=== PATIENT | female | born 1995 | race Caucasian/White ===

== ENCOUNTER 2017-11-04 15:24 | Emergency (ER) | payer OTHER ==
[~2017-11-04] VITALS: Ht 160 cm; Wt 120.8 kg
[~2017-11-04 15:24] MED LIST: ALBU1AER9 INH; CHOL100010 PO; LACT1CAP6 PO; MULTTAB58 PO; OMEP40CA PO
[2017-11-04] MEDS ORDERED: ALBUT/IPRATROP 3MG/0.5MG NEB 3 ML VIAL INH STA (16:56)
[2017-11-04] MEDS ORDERED: KETOROLAC TROMETHAMINE 30 MG/ML VIAL IV STA (16:56)
[2017-11-04] MEDS ORDERED: SODIUM CHLORIDE 0.9% 1000ML 1,000 ML IV STA (16:56)
[2017-11-04 17:18] VITALS: O2SAT 96; Ht 160 cm; Wt 120.8 kg
[2017-11-04 17:41] LABS: BASO % 0.2 %; BASO ABS # 0.03 K/uL (0-0.2); EOS % 0.6 %; EOS ABS # 0.08 K/uL (0-0.5); HEMATOCRIT 39.8 % (37-47); HEMOGLOBIN 12.9 g/dL (12.0-16.0); IG# 0.03 K/uL (0.00-0.02); LYMPH % 9.7 %; LYMPH ABS # 1.36 K/uL (1.2-3.4); MEAN CELL VOLUME 83.6 fL (80-100); MEAN CORPUSCULAR HEMOGLOBIN 27.1 pg (25-34); MEAN CORPUSCULAR HGB CONC 32.4 g/dl (32-36); MEAN PLATELET VOLUME 10.1 fL (7.4-10.4); MONO % 6.1 %; MONO ABS # 0.85 K/uL (0.11-0.59); NEUT % 83.2 %; NEUT ABS # 11.63 K/uL (1.4-6.5); PLATELET COUNT 250 K/uL (130-400); RED CELL DISTRIBUTION WIDTH CV 14.3 % (11.5-14.5); RED CELL DISTRIBUTION WIDTH SD 43.9 fL (36.4-46.3); WHITE BLOOD COUNT 13.98 K/uL (4.8-10.8)
[2017-11-04 18:01] LABS: ALBUMIN 3.9 gm/dl (3.4-5.0); CALCIUM 8.9 mg/dl (8.5-10.1); CREATININE 0.8 mg/dl (0.60-1.20); POTASSIUM 3.9 mmol/L (3.5-5.1); TOTAL PROTEIN 8.2 gm/dl (6.4-8.2)
[2017-11-04] MEDS ORDERED: OMEP-334 PO (18:19)
[2017-11-04] MEDS ORDERED: VNTHFA/IN INH (18:19)
--- NOTE | 2017-11-04 19:23 | DIAGNOSTIC IMAGING REPORT ---
CHEST 2 VIEWS ROUTINE CLINICAL HISTORY: EVALUATE RESPIRATORY DISTRESS.DYSPNEA COMPARISON STUDY: Chest radiograph January 20, 2015. FINDINGS: Lung volumes are normal. There is no consolidation or evidence for pulmonary edema. No pneumothorax or pleural effusion is noted. Cardiac size is normal. Mediastinal contours are normal. IMPRESSION: No acute cardiopulmonary findings. Electronically signed by: Cristobal Hoyos M.D. 11/04/2017 7:22 PM Dictated Date/Time: 11/04/2017 7:21 PM
--- NOTE | 2017-11-04 19:28 | EMERGENCY ROOM VISIT NOTE ---
ED Visit Note First contact with patient: 16:35 CHIEF COMPLAINT: Cough, congestion, wheezing, chest tightness HISTORY OF PRESENTING ILLNESS: This is a 21-year-old female who presents the emergency department with concern for cough, wheezing, and chest tightness for the past 3 days. She states that she has been ill with an upper respiratory infection, coughing and congested, and feels she has some drainage in the back of her throat. She denies any fevers or chills, though she is noted to be febrile in triage. She has a history of asthma, she feels like this illness is aggravating her asthma. She has had some headaches and body aches off and on, but denies any persistent severe headaches, neck stiffness or pain. She denies any chest pain. She denies any hemoptysis. She does report that she recently went on a cruise with stops in [facility], [place], and [place] she returned from this a month ago. She does note some sick contacts with similar URI symptoms at work. She states that she has been using her albuterol nebulizer at home with some relief, but states she is almost out of this. REVIEW OF SYSTEMS: A complete 10 point review of systems was reviewed with the patient with pertinent positives and negatives as per history of present illness. All else were negative. PAST MEDICAL HISTORY: Reviewed in chart, see problem list below. SOCIAL HISTORY: Lives at home. She denies tobacco use. ALLERGIES: No known allergies. PHYSICAL EXAM: CONSTITUTIONAL: Pleasant and cooperative. No acute distress, nontoxic- appearing. Mildly dehydrated, but otherwise well appearing and well nourished. HEENT: Normocephalic, atraumatic. Pupils equal, round and reactive to light, EOMI. TMs normal. Pharynx normal. Tacky mucous membranes. NECK: Supple, full active range of motion without discomfort. RESPIRATORY: Diminished to auscultation bilaterally with mild expiratory wheezing. No crackles, rhonchi or stridor. No tachypnea. Nonlabored breathing. No accessory muscle use. Equal expansion bilaterally. CARDIOVASCULAR: Regular rate and rhythm with no murmurs, rubs or gallops. Normal peripheral perfusion. No edema. GASTROINTESTINAL: Soft, nontender, nondistended. No palpable masses or HSM. Bowel sounds present in all quadrants. MUSCULOSKELETAL: Full range of motion of all joints without discomfort. No calf swelling or tenderness to palpation. Negative Homans sign. INTEGUMENTARY: No rash or other significant dermatologic conditions noted. NEUROLOGIC: Alert and oriented X 4 with normal affect. Normal strength and sensation in all 4 extremities. No focal neurologic deficits noted. Normal speech. Normal gait observed. ED COURSE AND MEDICAL DECISION MAKING: CC: Patient presenting with complaint of cough, congestion, wheezing, chest tightness DIFFERENTIAL DIAGNOSIS: Includes, but not limited to viral URI, bronchitis, pneumonia, asthma exacerbation, PE, among others. INTERPRETATION OF LABS: Mild leukocytosis with left shift, no anemia, normal platelets, no significant electrolyte abnormalities, normal renal function, normal liver enzymes. UA appears contaminated, no infection. Urine negative. IMAGING: CHEST 2 VIEWS ROUTINE CLINICAL HISTORY: EVALUATE RESPIRATORY DISTRESS.DYSPNEA COMPARISON STUDY: Chest radiograph January 20, 2015. FINDINGS: Lung volumes are normal. There is no consolidation or evidence for pulmonary edema. No pneumothorax or pleural effusion is noted. Cardiac size is normal. Mediastinal contours are normal. IMPRESSION: No acute cardiopulmonary findings. MEDICATION RECONCILIATION: I attest that I have personally reviewed the patient 's current medication list. INITIAL VITAL SIGNS REVIEW: I reviewed the patient's initial vital signs and interpret them as follows: T: Febrile; BP: Hypertensive; HR: Tachycardic; RR : Within normal limits; Pulse Ox: Within normal limits on room air. Blood pressure screening: The patient was found to have an elevated blood pressure, which was felt to be situational. SUMMARY: Patient was evaluated at bedside, history and physical exam performed. Patient is alert and oriented, in no acute distress, resting calmly in stretcher. Patient is noted to cough frequently, and has mild expiratory wheezes throughout on auscultation. She is in no acute respiratory distress, no tachypnea and nonlabored breathing. Orders were placed at bedside for labs, UA and urine , IV fluids for hydration as a precaution, IV Toradol for body aches and fever, chest x-ray to evaluate for cardiopulmonary disease. Patient discussed with Dr. Carolina, who agrees with my assessment and plan. Labs and imaging reviewed as above, mild leukocytosis, otherwise unremarkable. No evidence of pneumonia on chest x-ray. Doubt PE at this time, low risk by well's criteria. Patient reassessed multiple times throughout ED stay, she has remained stable, tachycardia is downtrending with IV fluids. She still has a low-grade fever on repeat vitals, Tylenol ordered. Patient states that she is feeling much better after the Toradol and IV fluids. She is tolerating p.o. fluids well. Her wheezing, cough, and chest tightness are all improved after the DuoNeb treatment, and lungs are clear on reassessment. Symptoms seem most consistent with a viral URI and mild asthma exacerbation. Patient was updated on all results and plan for discharge, she was encouraged to follow closely with her PCP. Patient was also given strict return precautions should her symptoms worsen, she verbalized understanding. Patient was discharged home in stable condition and ambulatory. Problem List Medical Problems: (1) Acute bronchitis Status: Resolved (2) Acute tonsillitis Status: Resolved (3) Asthma, Unspecified Status: Chronic (4) Chronic Sinusitis Nos Status: Resolved (5) Dentalgia Status: Resolved (6) Exacerbation of asthma Status: Resolved (7) Exudative tonsillitis Status: Resolved (8) Gastro-Esophageal Reflux Disease Without Esophagitis Status: Chronic (9) Infectious Mononucleosis Status: Resolved (10) Peritonsillar abscess Status: Resolved (11) Personal History, Pneumonia (Recurrent) Status: Resolved Current/Historical Medications Scheduled Omeprazole (Omeprazole Dr), 40 MG PO DAILY Scheduled PRN Albuterol Hfa (Ventolin Hfa), 2-4 PUFFS INH Q4 PRN for SOB/Wheezing Allergies Coded Allergies: No Known Allergies (Unverified , 11/04/17) Vital Signs Date Time Temp Pulse Resp B/P (MAP) Pulse Ox O2 Delivery O2 Flow Rate FiO2 11/04/17 20:59 111 16 140/87 98 11/04/17 20:33 38.1 111 16 140/87 98 Room Air 11/04/17 20:33 111 16 140/87 98 Room Air 11/04/17 18:29 117 20 136/79 94 Room Air 11/04/17 17:18 96 Room Air 11/04/17 17:18 96 Room Air 11/04/17 15:29 38.1 119 18 160/82 96 Room Air Laboratory Results 11/04/17 17:32 Red Blood Count 4.76, Mean Corpuscular Volume 83.6, Mean Corpuscular Hemoglobin 27.1, Mean Corpuscular Hemoglobin Concent 32.4, Mean Platelet Volume 10.1, Neutrophils (%) (Auto) 83.2, Lymphocytes (%) (Auto) 9.7, Monocytes (%) (Auto) 6.1, Eosinophils (%) (Auto) 0.6, Basophils (%) (Auto) 0.2, Neutrophils # (Auto) 11.63, Lymphocytes # (Auto) 1.36, Monocytes # (Auto) 0.85, Eosinophils # (Auto) 0.08, Basophils # (Auto) 0.03 11/04/17 17:32 Test 11/04/17 17:32 11/04/17 18:25 White Blood Count 13.98 K/uL (4.8-10.8) Red Blood Count 4.76 M/uL (4.2-5.4) Hemoglobin 12.9 g/dL (12.0-16.0) Hematocrit 39.8 % (37-47) Mean Corpuscular Volume 83.6 fL (80-100) Mean Corpuscular Hemoglobin 27.1 pg (25-34) Mean Corpuscular Hemoglobin Concent 32.4 g/dl (32-36) Platelet Count 250 K/uL (130-400) Mean Platelet Volume 10.1 fL (7.4-10.4) Neutrophils (%) (Auto) 83.2 % Lymphocytes (%) (Auto) 9.7 % Monocytes (%) (Auto) 6.1 % Eosinophils (%) (Auto) 0.6 % Basophils (%) (Auto) 0.2 % Neutrophils # (Auto) 11.63 K/uL (1.4-6.5) Lymphocytes # (Auto) 1.36 K/uL (1.2-3.4) Monocytes # (Auto) 0.85 K/uL (0.11-0.59) Eosinophils # (Auto) 0.08 K/uL (0-0.5) Basophils # (Auto) 0.03 K/uL (0-0.2) RDW Standard Deviation 43.9 fL (36.4-46.3) RDW Coefficient of Variation 14.3 % (11.5-14.5) Immature Granulocyte % (Auto) 0.2 % Immature Granulocyte # (Auto) 0.03 K/uL (0.00-0.02) Anion Gap 7.0 mmol/L (3-11) Est Creatinine Clear Calc Drug Dose 137.7 ml/min Estimated GFR () 120.4 Estimated GFR (Non- 103.9 BUN/Creatinine Ratio 12.8 (10-20) Calcium Level 8.9 mg/dl (8.5-10.1) Total Bilirubin 0.3 mg/dl (0.2-1) Aspartate Amino Transf (AST/SGOT) 17 U/L (15-37) Alanine Aminotransferase (ALT/SGPT) 31 U/L (12-78) Alkaline Phosphatase 81 U/L (45-117) Total Protein 8.2 gm/dl (6.4-8.2) Albumin 3.9 gm/dl (3.4-5.0) Globulin 4.3 gm/dl (2.5-4.0) Albumin/Globulin Ratio 0.9 (0.9-2) Urine Color YELLOW Urine Appearance CLEAR (CLEAR) Urine pH 6.5 (4.5-7.5) Urine Specific [place] 1.009 (1.000-1.030) Urine Protein NEG (NEG) Urine Glucose (UA) NEG (NEG) Urine Ketones NEG (NEG) Urine Occult Blood TRACE (NEG) Urine Nitrite NEG (NEG) Urine Bilirubin NEG (NEG) Urine Urobilinogen NEG (NEG) Urine Leukocyte Esterase TRACE (NEG) Urine WBC (Auto) 1-5 /hpf (0-5) Urine RBC (Auto) 0-4 /hpf (0-4) Urine Hyaline Casts (Auto) 0 /lpf (0-5) Urine Epithelial Cells (Auto) >30 /lpf (0-5) Urine Bacteria (Auto) NEG (NEG) Urine Test NEG (NEG) Medications Administered Medications (Trade) Dose Ordered Sig/Mary Route Start Time Stop Time Status Last Admin Dose Admin Albuterol/ Ipratropium (Duoneb) 3 ml NOW STAT INH 11/04/17 16:56 11/04/17 16:58 DC 11/04/17 17:22 3 ML Sodium Chloride 1,000 ml @ 999 mls/hr Q1H1M STAT IV 11/04/17 16:56 11/04/17 17:56 DC 11/04/17 17:22 999 MLS/HR Ketorolac Tromethamine (Toradol Inj) 15 mg NOW STAT IV 11/04/17 16:56 11/04/17 16:58 DC 11/04/17 17:22 15 MG Al Hydroxide/Mg Hydroxide (Maalox Susp) 30 ml NOW STAT PO 11/04/17 20:19 11/04/17 20:21 DC 11/04/17 20:30 30 ML Albuterol (Ventolin Hfa Inhaler) 2 puffs NOW ONCE INH 11/04/17 20:30 11/04/17 20:31 DC 11/04/17 20:30 2 PUFFS Acetaminophen (Tylenol Tab) 1,000 mg NOW STAT PO 11/04/17 20:44 11/04/17 20:45 DC 11/04/17 20:52 1,000 MG Departure Information Impression Primary Impression: Viral URI with cough Additional Impression: Asthma exacerbation Dispostion Home / Self-Care Condition GOOD Referrals Cayetano Rubin M.D. (PCP) Patient Instructions ED Bronchitis Asthmatic, ED Inhaler Use, [facility] Additional Instructions You have been evaluated in the emergency department for your cough and wheezing. There is no evidence of pneumonia on your chest x-ray. You most likely have a viral illness which should get better over the next 7-10 days. Use the albuterol inhaler TWO puffs every 4 hours with a spacer as needed for cough, wheezing, chest tightness. You should also use this before bed to help prevent coughing so that you can sleep better at night. For fevers/pain, you can use the following [id number] medicines (if >12 yo ): - Regular strength (325mg/tab) Tylenol (acetaminophen) 2 tabs every 6 hours as needed. Do not exceed 10 tablets in a 24 hour period. Avoid taking more than 3000 mg of Tylenol per day. This includes any other sources of acetaminophen you may take on a regular basis. - Regular strength (200 mg/tab) Advil (ibuprofen) 3 tabs every 6 hours as needed. Do not exceed a dose of 2400 mg per day. - For best results, alternate dosing of Tylenol and Advil every 3-4 hours. Drink plenty of fluids to stay well hydrated. Please follow-up with your PCP or at an urgent care in the next few days to be rechecked if your symptoms are not getting any better. Please return to the emergency department if your symptoms worsen over the next 2-3 days, or if you develop symptoms of inability to swallow solids, liquids, or drool; excessive wheezing or inability to catch your breath; severe chest pain, coughing up blood, severe dizziness or passing out; fever or pain that becomes unmanageable with osga-roj-eguqtel medications; or any other concerns. Work Instructions Return To Work: 3 days Problem Qualifiers Additional Impression: Asthma exacerbation Asthma severity: mild Asthma persistence: intermittent Qualified Codes: J45.21 - Mild intermittent asthma with (acute) exacerbation
[2017-11-04] MEDS ORDERED: CALCIUM CARBONATE 500 MG CHEWABLE PO STA (19:51)
[2017-11-04] MEDS ORDERED: ALUMINUM/MAGNESIUM SUSP 30 ML UDC PO STA (20:19)
[2017-11-04] MEDS ORDERED: ALBUTEROL HFA 8 GM INHALER INH ONE (20:30)
[2017-11-04 20:33] VITALS: TEMP 38.1
[2017-11-04] MEDS ORDERED: ACETAMINOPHEN 500 MG TAB PO STA (20:44)
[2017-11-04 20:59] VITALS: BP 140/87; PULSE 111; O2SAT 98
== END 2017-11-04 21:00 | disposition home or self-care (01) ==
LOC: C.EDB 15:25
DX: J06.9 Acute upper respiratory infection, unspecified (principal); R05 Cough; J45.21 Mild intermittent asthma with (acute) exacerbation; K21.9 Gastro-esophageal reflux disease without esophagitis

== ENCOUNTER 2022-03-09 14:25 | Inpatient (IN) ==
[2022-03-09] MEDS ORDERED: ONDANSETRON INJ 2 MG/ML 2 ML VIAL IV STA (15:10)
[2022-03-09] MEDS ORDERED: FAMOTIDINE 20MG IV PUSH 20 MG/5 ML SYR IV STA (15:10)
[2022-03-09] MEDS ORDERED: SODIUM CHLORIDE 0.9% 1000ML 2,000 ML IV ONE (15:10)
--- NOTE | 2022-03-09 15:40 | XRay Report ---
XR chest 1V portable HISTORY: 26 years-old Female weakness acute weakness COMPARISON: 12/15/2021 TECHNIQUE: AP view the chest FINDINGS: Cardiomediastinal and hilar silhouettes are within normal limits. No pneumothorax, pleural effusion, airspace consolidation or overt pulmonary edema. Mild coarsening of interstitium is likely secondary to patient body habitus. Bones appear grossly intact. IMPRESSION: No acute process. ACT 112: Negative or not required by law. The above report was generated using voice recognition software. It may contain grammatical, syntax o r spelling errors. Electronically signed by: Derek Peters M.D. 03/09/2022 3:39 PM
[2022-03-09] MEDS ORDERED: ACETAMINOPHEN 1,000 MG/100 ML VIAL IV STA (15:58)
[2022-03-09] MEDS ORDERED: ALBUT/IPRATROP 3MG/0.5MG NEB 3 ML VIAL NEB STA (15:58)
[2022-03-09] MEDS ORDERED: SODIUM CHLORIDE 0.65% NA SOLN 45 ML (OCEAN) ONE (15:58)
[2022-03-09 16:09] LABS: Hematocrit (blood only) 32.4 % (34.1-44.9); Hemoglobin 10.9 g/dl (12.0-16.0); Mean Corpuscular Hgb Conc 33.6 g/dL (32.0-36.0); Mean Corpuscular Volume 86.2 fL (80.0-100.0); Mean Platelet Volume 10.7 fL (9.4-12.3); Platelet Count 163 K/uL (130-400); RDW Coefficient of Variation 12.8 % (11.5-14.5); RDW Standard Deviation 39.9 fL (36.4-46.3); Red Blood Count 3.76 M/uL (3.93-5.22); White Blood Count 10.72 K/ul (4.8-10.8)
[2022-03-09 16:27] LABS: Basophils # (auto) 0.02 K/uL (0-0.2); Basophils % (auto) 0.2 %; Eosinophils # (auto) 0.01 K/uL (0-0.50); Eosinophils % (auto) 0.1 %; Immature Granulocytes # (auto) 0.12 K/uL (0.00-0.02); Immature Granulocytes % (auto) 1.1 %; Lymphocytes # (auto) 0.23 K/uL (1.2-3.4); Lymphocytes % (auto) 2.1 %; Monocytes # (auto) 0.59 K/uL (0.24-0.82); Monocytes % (auto) 5.5 %; Neutrophils # (auto) 9.75 K/uL (1.4-6.5)
[2022-03-09 16:30] LABS: Albumin Globulin Ratio 1.1 (0.9-2); Albumin Level 3.1 gm/dl (3.4-5.0); BUN Creatinine Ratio 10.7 (10-20); Bilirubin,Total 0.5 mg/dl (0.2-1.0); Creatinine Clr Calc Pharmacy 179.7 ml/min; Est GFR (African American) 147.1 ml/min; Est GFR (Non-African American) 126.9 ml/min; Globulin 2.7 gm/dl (2.5-4.0); Magnesium 1.4 mg/dl (1.7-2.4); Potassium 3.6 mmol/L (3.5-5.1); Total Protein 5.8 gm/dl (6.0-8.3)
--- NOTE | 2022-03-09 16:50 | Electrocardiogram Report ---
Test Reason : Blood Pressure : / mmHG Vent. Rate : 131 BPM Atrial Rate : 131 BPM P-R Int : 114 ms QRS Dur : 070 ms QT Int : 286 ms P-R-T Axes : 075 058 259 degrees QTc Int : 422 ms Poor data quality, interpretation may be adversely affected Sinus tachycardia Chronic T-wave inversion in multiple leads Abnormal ECG When compared with ECG of 19-MAY-2020 10:35, Vent. rate has increased BY 55 BPM T-wave inversion in multiple leads more pronounced (may be rate related) Confirmed by Wes Snyder ([id number] on 03/09/2022 4:50:22 PM Referred By: REFERRED SELF Confirmed By:Wes Snyder
[2022-03-09 16:54] LABS: Adenovirus PCR Not Detected (NotDetected); Bordetella parapertussis PCR Not Detected (NotDetected); Bordetella pertussis PCR Not Detected (NotDetected); Chlamydia pneumoniae PCR Not Detected (NotDetected); Coronavirus 229E PCR Not Detected (NotDetected); Coronavirus CoV-2 (COVID19)PCR Not Detected (NotDetected); Coronavirus HKU1 PCR Not Detected (NotDetected); Coronavirus NL63 PCR Not Detected (NotDetected); Coronavirus OC43PCR Not Detected (NotDetected); Human Metapneumovirus PCR Not Detected (NotDetected); Influenza B PCR Not Detected (NotDetected); Mycoplasma pneumoniae PCR Not Detected (NotDetected); Parainfluenza Virus 1 PCR Not Detected (NotDetected); Parainfluenza Virus 2 PCR Not Detected (NotDetected); Parainfluenza Virus 3 PCR Not Detected (NotDetected); Parainfluenza Virus 4 PCR Not Detected (NotDetected); Respiratory Syncytial VirusPCR Not Detected (NotDetected); Rhinovirus/Enterovirus PCR Not Detected (NotDetected)
[2022-03-09 16:55] LABS: Influenza A (H1 2009) PCR DETECTED (NotDetected)
[2022-03-09] MEDS: MAGNESIUM SULFATE / D5W 1 GM/100 ML BAG IV SCH ×2 (17:52→18:50)
[2022-03-09 18:36] LABS: Appearance Urine Cloudy (Clear); Bacteria Urine Automated 2+ (Negative); Bilirubin Urine Negative (Negative); Blood Urine Negative (Negative); Color Urine Yellow; Epithelial Cell Urine Auto >30 /lpf (0-5); Glucose Urine UA Negative (Negative); Ketones Urine 3+ (Negative); Leukocyte Esterase Urine 3+ (Negative); Nitrite Urine Negative (Negative); Protein Urine Negative (Negative); RBC Urine Automated 0-4 /hpf (0-4); Specific Gravity Urine 1.007 (1.000-1.030); Urobilinogen Urine Negative (Negative); WBC Urine Automated >30 /hpf (0-5)
[2022-03-09] MEDS ORDERED: OSELTAMIVIR PHOSPHATE 75 MG CAP PO STA (19:12)
--- NOTE | 2022-03-09 19:20 | Emergency Department Note ---
Impression & Plan Influenza A virus subtype H1 present, Asthma, Dehydration, Hypomagnesemia ED Provider Note NAME: SUELLEN PARK AGE: 26 SEX: F ARRIVES VIA: Walk-In INFORMANT: Patient ED PROVIDER(S): Anthony Devine MD CHIEF COMPLAINT: Cough, congestion, nausea, vomiting, body aches, 38 weeks . PLAN: Disposition: Admit MEDICAL DECISION MAKING: The patient is a pleasant 26-year-old woman, G1, P0 at 38 weeks with pmhx of asthma, anxiety/depression, obesity, GERD who presents to the emergency department for evaluation of cough, congestion and generalized body aches with associated nausea and vomiting over the past 24 hours. She is not vaccinated for COVID nor the flu. She denies chest pain, abdominal pain or cramping. She denies any vaginal bleeding or discharge. She continues to have movements. She reports that her thus far has been uncomplicated. She reports a history of asthma and acid reflux. On arrival the patient is uncomfortable but no acute distress, afebrile with heart in the 130s and vital signs otherwise stable. O2 saturations 98% on room air. She appears clinically dry. Lungs with a very subtle wheeze and are otherwise clear. FHT upper 130s. EKG without overt acute ischemia. CXR negative for acute cardiopulmonary process. WBC and platelets within normal limits. H/H similar to prior. Chemistry without metabolic acidosis. Magnesium 1.4 with repletion initiated. LFTs unremarkable. TSH within normal limits. UA with 3+ ketones consistent with patient's clinically dry appearance. UA otherwise appears contaminated. Respiratory viral panel was performed and was positive for influenza A. H1 2008. Upon reevaluation the patient denied feeling much improvement though she did appear better and heart rate had improved. However, given her third trimester at 38 weeks with dehydration in setting of Influenza A will refer for admission. Case was discussed with Dr. Cox, [place] supervisor boat out[employer]. Agrees with plan for admission however recommends admission to medicine service as they attempt to avoid placement of influenza patients in the OB floor. However, they will be available for consultation for at least daily monitoring. Agrees with Tamiflu and steroids, given the patient's history of asthma and bronchospasm on exam. Case was discussed with Dr. Yang, [facility] hospitalist, who will evaluate the patient for admission. Triage Nursing notes reviewed and agree them. Prior medical records reviewed Vital Signs: reviewed Differential diagnosis: Viral syndrome, otitis, pharyngitis, pneumonia, influenza, meningitis, urinary tract infection, sepsis, bacteremia, as well as other pathologies. ER treatment provided: See below. Diagnostics interpreted by me: ECG: Sinus tachycardia, 131 bpm, no overt ST elevation or depression, QTC 422, QRS 70 Cardiac Monitoring: An order for continuous cardiac monitoring was placed and demonstrated sinus tachycardia, 131 bpm, no ectopy. Laboratory studies: See below Imaging studies: See below Consultation(s): Dr. Cox, [place] supervisor boat outfitting Dr. Yang, [facility] Hospitalist HPI: The patient is a pleasant 26-year-old woman, G1, P0 at 38 weeks w ith pmhx of asthma, anxiety/depression, obesity, GERD who presents to the emergency department for evaluation of cough, congestion and generalized body aches with associated nausea and vomiting over the past 24 hours. She is not vaccinated for COVID nor the flu. She denies chest pain, abdominal pain or cramping. She denies any vaginal bleeding or discharge. She continues to have movements. She reports that her thus far has been uncomplicated. She reports a history of asthma and acid reflux. ROS: See above HPI for pertinent positives & negatives. A total of 10 systems reviewed and were otherwise negative. VITALS:See Below PHYSICAL EXAMINATION: GENERAL: Awake, alert, fatigued/uncomfortable-appearing, in no distress HENT: Normocephalic, atraumatic. Oropharynx with dry mucous membranes and o therwise unremarkable. EYES: Normal conjunctiva. Sclera non-icteric. NECK: Supple. No nuchal rigidity. FROM. No JVD. RESPIRATORY: Scant intermittent wheeze, otherwise clear to auscultation. Normal respiratory effort. CARDIAC: Regular rate, normal rhythm. Extremities warm and well perfused. Pulses equal. ABDOMEN: Soft. Gravid. No tenderness to palpation. No rebound or guarding. No masses. RECTAL: Deferred. MUSCULOSKELETAL: Chest examination reveals no tenderness. The back is symmetrical on inspection without obvious abnormality. There is no CVA tenderness to palpation. No joint edema. LOWER EXTREMITIES: Calves are equal size bilaterally and non-tender. No edema. No discoloration. NEURO: Normal sensorium. No sensory or motor deficits noted. SKIN: No rash or jaundice noted. Anthony Devine MD Past Med/Surg History Medical History Anxiety Asthma Depression GERD (gastroesophageal reflux disease) History of chicken pox Hx of chlamydia infection Infectious mononucleosis Peritonsillar abscess HX Temporomandibular joint disorder CLICKS LEFT SIDE-NO LOCKING Surgical History History of cholecystectomy History of tonsillectomy History of tooth extraction WISDOM TEETH Family History Aunt Ovarian cancer Melanoma Uncle Acute leukemia Mother Arthritis Denies family history of Breast cancer Lung cancer Colorectal cancer Social History Smoking Status: Never smoker Second Hand Exposure: No (BOYFRIEND SMOKES); Hx Alcohol Use: No Hx Substance Use: No Preferred Language: Vietnamese Communication Ability: Effective Visual Impairment: Partially Limited Music Executive Required: No Beliefs That Will Affect Care: None marital status: marital status details: NENO Herrera (27) [phone] Current Living Situation: Significant Other Current Living Situation Comment: FOB & 1 dog current occupational status: employed current occupation: [employer] How many Children do You have: 0 Feels Safe at Home: Yes Assistive Devices: None Allergies Allergies Allergy/AdvReac Type Severity Reaction Status Date / Time house dust Allergy Mild Sneezing Verified 03/09/22 21:07 pollen extracts Allergy Mild Sneezing Verified 03/09/22 21:07 Home Meds Home Medications Medication Instructions Recorded Confirmed prenat.vits,heather,oys-[id number] 1 tab PO DAILY 07/14/21 03/09/22 Sudafed Tab 1 tab PO BID PRN Congestion 03/09/22 03/09/22 famotidine 10 mg tablet (Pepcid AC) 10 mg PO DAILY PRN Acid Reflux 03/09/22 03/09/22 Previous Rx's Medication Instructions Recorded albuterol sulfate 90 mcg/actuation 2 inha inhalation QID PRN 12/15/21 aerosol inhaler shortness of breath or wheezing #6.7 grams Results & Data (ED) Vital Signs Vital Signs - 24 hr 03/09/22 14:41 03/09/22 15:10 03/09/22 17:00 Temperature 36.6 C Temperature Source Temporal Artery Scan Pulse Rate 133 H 120 H Pulse Rate [Apical] 114 H Respiratory Rate 18 20 18 Respiratory Effort / Characteristics Non-Labored Spontaneous Respiratory Depth Normal Respiratory Pattern Regular Blood Pressure 132/84 Blood Pressure [Right Arm] 114/79 Blood Pressure Mean 100 Blood Pressure Mean [Right Arm] 90 Blood Pressure Position Sitting Pulse Oximetry 98 98 100 Oxygen Delivery Method Room Air Room Air Sepsis Recent Fever Within 48 Hours No Sepsis New/Unexplained Change in Mental Status N/A Sepsis Action Taken by Nursing No Action Required 03/09/22 19:00 Temperature Temperature Source Pulse Rate Pulse Rate [Apical] 114 H Respiratory Rate 22 Respiratory Effort / Characteristics Non-Labored Respiratory Depth Normal Respiratory Pattern Blood Pressure Blood Pressure [Right Arm] 112/78 Blood Pressure Mean Blood Pressure Mean [Right Arm] 89 Blood Pressure Position Pulse Oximetry 99 Oxygen Delivery Method Sepsis Recent Fever Within 48 Hours Sepsis New/Unexplained Change in Mental Status Sepsis Action Taken by Nursing Laboratory Data Attestation: I reviewed the patient's lab results. Result diagrams: 03/09/22 15:43 03/09/22 15:43 Lab Results 03/09/22 03/09/22 03/09/22 Range/Units 15:43 15:43 15:43 WBC 10.72 (4.8-10.8) K/ul RBC 3.76 L (3.93-5.22) M/uL Hgb 10.9 L (12.0-16.0) g/dl Hct 32.4 L (34.1-44.9) % MCV 86.2 (80.0-100.0) fL MCH 29.0 (25.0-34.0) pg MCHC 33.6 (32.0-36.0) g/dL RDW Std Deviation 39.9 (36.4-46.3) fL RDW Coeff of Shun 12.8 (11.5-14.5) % Plt Count 163 (130-400) K/uL MPV 10.7 (9.4-12.3) fL Immature Gran % (Auto) 1.1 % Neut % (Auto) 91.0 % Lymph % (Auto) 2.1 % [place] % (Auto) 5.5 % Eos % (Auto) 0.1 % Baso % (Auto) 0.2 % Neut # (Auto) 9.75 H (1.4-6.5) K/uL Lymph # (Auto) 0.23 L (1.2-3.4) K/uL [place] # (Auto) 0.59 (0.24-0.82) K/uL Eos # (Auto) 0.01 (0-0.50) K/uL Baso # (Auto) 0.02 (0-0.2) K/uL Immature Gran # (Auto) 0.12 H (0.00-0.02) K/uL Sodium 132 L (136-145) mmol/L Potassium 3.6 (3.5-5.1) mmol/L Chloride 101 (98-107) mmol/L Carbon Dioxide 21 (21-32) mmol/L Anion Gap 10 (3-11) BUN 6 (6-23) mg/dl Creatinine 0.56 L (0.6-1.2) mg/dl Est Cr Clr Drug Dosing 179.7 ml/min Est GFR ( Amer) 147.1 ml/min Est GFR (Non-Af Amer) 126.9 ml/min BUN/Creatinine Ratio 10.7 (10-20) Glucose 82 (70-99(Fasting)) mg/dl Calcium 8.0 L (8.5-10.1) mg/dl Magnesium 1.4 L (1.7-2.4) mg/dl Total Bilirubin 0.5 (0.2-1.0) mg/dl AST 21 (13-39) U/L ALT 14 (7-52) U/L Alkaline Phosphatase 113 H (34-104) U/L Total Protein 5.8 L (6.0-8.3) gm/dl Albumin 3.1 L (3.4-5.0) gm/dl Globulin 2.7 (2.5-4.0) gm/dl Albumin/Globulin Ratio 1.1 (0.9-2) TSH 1.388 (0.300-4.500) uIu/ml Urine Color Urine Appearance (Clear) Urine pH (4.5-7.5) Ur Specific [place] (1.000-1.030) Urine Protein (Negative) Urine Glucose (UA) (Negative) Urine Ketones (Negative) Urine Blood (Negative) Urine Nitrite (Negative) Urine Bilirubin (Negative) Urine Urobilinogen (Negative) Ur Leukocyte Esterase (Negative) Urine WBC (Auto) (0-5) /hpf Urine RBC (Auto) (0-4) /hpf U Hyaline Cast (Auto) (0-5) /lpf U Epithel Cells (Auto) (0-5) /lpf Urine Bacteria (Auto) (Negative) Ur Renal Epithelial Cell Urine Crystals Calcium Oxalate Crystal Uric Acid Crystals Triple Phos Crystals Other Crystals Amorphous Sediment Granular Casts Waxy Casts RBC Casts WBC Casts Other Casts Urine Mucus Urine Other Urine Trichomonas Urine Yeast Urine Sperm Ur Oval Fat Bodies Nasal Influ A H1 2009 PCR (NotDetected) Adenovirus (PCR) (NotDetected) B. pertussis DNA (PCR) (NotDetected) B.parapertussis DNA PCR (NotDetected) C. pneumoniae DNA (PCR) (NotDetected) Coronavirus OC43 (PCR) (NotDetected) Coronavirus HKU1 (PCR) (NotDetected) Coronavirus 229E (PCR) (NotDetected) SARS-CoV-2 (PCR) (NotDetected) Coronavirus NL63 (PCR) (NotDetected) Human Metapneumovir PCR (NotDetected) Influenza Type B (PCR) (NotDetected) M. pneumoniae (PCR) (NotDetected) Parainfluenza 1 (PCR) (NotDetected) Parainfluenza 2 (PCR) (NotDetected) Parainfluenza 3 (PCR) (NotDetected) Parainfluenza 4 (PCR) (NotDetected) RSV (PCR) (NotDetected) Entero/Rhino (PCR) (NotDetected) 03/09/22 03/09/22 03/09/22 Range/Units 18:15 Unknown Unknown WBC (4.8-10.8) K/ul RBC (3.93-5.22) M/uL Hgb (12.0-16.0) g/dl Hct (34.1-44.9) % MCV (80.0-100.0) fL MCH (25.0-34.0) pg MCHC (32.0-36.0) g/dL RDW Std Deviation (36.4-46.3) fL RDW Coeff of Shun (11.5-14.5) % Plt Count (130-400) K/uL MPV (9.4-12.3) fL Immature Gran % (Auto) % Neut % (Auto) % Lymph % (Auto) % [place] % (Auto) % Eos % (Auto) % Baso % (Auto) % Neut # (Auto) (1.4-6.5) K/uL Lymph # (Auto) (1.2-3.4) K/uL [place] # (Auto) (0.24-0.82) K/uL Eos # (Auto) (0-0.50) K/uL Baso # (Auto) (0-0.2) K/uL Immature Gran # (Auto) (0.00-0.02) K/uL Sodium (136-145) mmol/L Potassium (3.5-5.1) mmol/L Chloride (98-107) mmol/L Carbon Dioxide (21-32) mmol/L Anion Gap (3-11) BUN (6-23) mg/dl Creatinine (0.6-1.2) mg/dl Est Cr Clr Drug Dosing ml/min Est GFR ( Amer) ml/min Est GFR (Non-Af Amer) ml/min BUN/Creatinine Ratio (10-20) Glucose (70-99(Fasting)) mg/dl Calcium (8.5-10.1) mg/dl Magnesium (1.7-2.4) mg/dl Total Bilirubin (0.2-1.0) mg/dl AST (13-39) U/L ALT (7-52) U/L Alkaline Phosphatase (34-104) U/L Total Protein (6.0-8.3) gm/dl Albumin (3.4-5.0) gm/dl Globulin (2.5-4.0) gm/dl Albumin/Globulin Ratio (0.9-2) TSH (0.300-4.500) uIu/ml Urine Color Yellow Cancelled Urine Appearance Cloudy A Cancelled (Clear) Urine pH 6.0 Cancelled (4.5-7.5) Ur Specific [place] 1.007 Cancelled (1.000-1.030) Urine Protein Negative Cancelled (Negative) Urine Glucose (UA) Negative Cancelled (Negative) Urine Ketones 3+ H Cancelled (Negative) Urine Blood Negative Cancelled (Negative) Urine Nitrite Negative Cancelled (Negative) Urine Bilirubin Negative Cancelled (Negative) Urine Urobilinogen Negative Cancelled (Negative) Ur Leukocyte Esterase 3+ H Cancelled (Negative) Urine WBC (Auto) >30 H Cancelled (0-5) /hpf Urine RBC (Auto) 0-4 Cancelled (0-4) /hpf U Hyaline Cast (Auto) 0 Cancelled (0-5) /lpf U Epithel Cells (Auto) >30 H Cancelled (0-5) /lpf Urine Bacteria (Auto) 2+ H Cancelled (Negative) Ur Renal Epithelial Cell Cancelled Urine Crystals Cancelled Calcium Oxalate Crystal Cancelled Uric Acid Crystals Cancelled Triple Phos Crystals Cancelled Other Crystals Cancelled Amorphous Sediment Cancelled Granular Casts Cancelled Waxy Casts Cancelled RBC Casts Cancelled WBC Casts Cancelled Other Casts Cancelled Urine Mucus Cancelled Urine Other Cancelled Urine Trichomonas Cancelled Urine Yeast Cancelled Urine Sperm Cancelled Ur Oval Fat Bodies Cancelled Nasal Influ A H1 2008 PCR DETECTED A* (NotDetected) Adenovirus (PCR) Not Detected (NotDetected) B. pertussis DNA (PCR) Not Detected (NotDetected) B.parapertussis DNA PCR Not Detected (NotDetected) C. pneumoniae DNA (PCR) Not Detected (NotDetected) Coronavirus OC43 (PCR) Not Detected (NotDetected) Coronavirus HKU1 (PCR) Not Detected (NotDetected) Coronavirus 229E (PCR) Not Detected (NotDetected) SARS-CoV-2 (PCR) Not Detected (NotDetected) Coronavirus NL63 (PCR) Not Detected (NotDetected) Human Metapneumovir PCR Not Detected (NotDetected) Influenza Type B (PCR) Not Detected (NotDetected) M. pneumoniae (PCR) Not Detected (NotDetected) Parainfluenza 1 (PCR) Not Detected (NotDetected) Parainfluenza 2 (PCR) Not Detected (NotDetected) Parainfluenza 3 (PCR) Not Detected (NotDetected) Parainfluenza 4 (PCR) Not Detected (NotDetected) RSV (PCR) Not Detected (NotDetected) Entero/Rhino (PCR) Not Detected (NotDetected) Administered Medications Sodium Chloride (Nss 1000ml) 1,000 mls @ 125 mls/hr IV .Q8H ALEX Stop: 04/08/22 19:44 Last Admin: 03/09/22 19:39 Dose: 125 mls/hr Documented By: TNB Discontinued Medications Albuterol (Albut/Ipratrop 3mg/0.5mg Neb 3 Ml Vial) 3 ml NEB NOW STA; Protocol Stop: 03/09/22 15:59 Last Admin: 03/09/22 16:06 Dose: 3 ml Documented By: TNB Sodium Chloride (Nss 1000ml) 2,000 mls @ 999 mls/hr IV .Q2H1M ONE Stop: 03/09/22 17:10 Last Infusion: 03/09/22 16:50 Dose: 0 mls/hr Documented By: Admin: 03/09/22 15:42 Dose: 999 mls/hr Documented By: MMZ Famotidine (Pepcid 20mg Iv Push) 20 mg in 5 mls @ 2.5 mls/min IV NOW STA Stop: 03/09/22 15:11 Last Admin: 03/09/22 16:06 Dose: 2.5 mls/min Documented By: TNB Acetaminophen (Ofirmev) 1,000 mg in 100 mls @ 400 mls/hr IV NOW STA Stop: 03/09/22 16:12 Last Infusion: 03/09/22 16:34 Dose: 0 mls/hr Documented By: Admin: 03/09/22 16:06 Dose: 400 mls/hr Documented By: TNMichaelle Magnesium Sulfate/Dextrose (Magnesium Sulfate / D5w) 1 gm in 100 mls @ 100 mls/hr IV Q1H ALEX Stop: 03/09/22 19:26 Last Infusion: 03/09/22 19:53 Dose: 0 mls/hr Documented By: Admin: 03/09/22 18:50 Dose: 100 mls/hr Documented By: Infusion: 03/09/22 18:50 Dose: 100 mls/hr Documented By: Admin: 03/09/22 17:52 Dose: 100 mls/hr Documented By: TNB Methylprednisolone (Methylprednisolone 125 Mg/2 Ml Vial) 60 mg IV NOW STA Stop: 03/09/22 19:30 Last Admin: 03/09/22 19:38 Dose: 60 mg Documented By: HALEY Ondansetron HCl (Ondansetron Inj 2 Mg/Ml 2 Ml Vial) 4 mg IV NOW STA Stop: 03/09/22 15:11 Last Admin: 03/09/22 16:39 Dose: Not Given Documented By: HALEY Oseltamivir Phosphate (Oseltamivir Phosphate 75 Mg Cap) 75 mg PO NOW STA; Protocol Stop: 03/09/22 19:13 Last Admin: 03/09/22 19:38 Dose: 75 mg Documented By: HALEY Sodium Chloride (Sodium Chloride 0.65% Na Soln 45 Ml ([place])) 2 sprays NA NOW ONE Stop: 03/09/22 15:59 Last Admin: 03/09/22 16:06 Dose: 225 sprays Documented By: HALEY Imaging Data Radiologist's Impression: Chest X-Ray 03/09/22 15:10 XR chest 1V portable HISTORY: 26 years-old Female weakness acute weakness COMPARISON: 12/15/2021 TECHNIQUE: AP view the chest FINDINGS: Cardiomediastinal and hilar silhouettes are within normal limits. No pneumothorax, pleural effusion, airspace consolidation or overt pulmonary edema. Mild coarsening of interstitium is likely secondary to patient body habitus. Bones appear grossly intact. IMPRESSION: No acute process. ACT 112: Negative or not required by law. The above report was generated using voice recognition software. It may contain grammatical, syntax or spelling errors. Electronically signed by: Derek Peters M.D. 03/09/2022 3:39 PM Discharge Plan Visit Data Chief Complaint: Dehydration Stated Complaint: DEHYDRATION, COUGHING , 38 WKS PREG ED Provider: Anthony Devine Discharge Problem: Influenza A virus subtype H1 present, Asthma, Dehydration, Hypomagnesemia Patient Disposition: Admitted As Inpatient Forms Stand Alone Forms: My [facility] Prescriptions Prescriptions: No Action Vitamin Tablet 1 tab PO DAILY albuterol sulfate 90 mcg/actuation HFA aerosol inhaler 2 inha INH QID PRN (Reason: shortness of breath or wheezing) Qty: 6.7 0RF famotidine [Pepcid AC] 10 mg Tablet 10 mg PO DAILY PRN (Reason: Acid Reflux) Sudafed Tab 1 tab PO BID PRN (Reason: Congestion) Referrals Referrals: Cayetano Rubin MD [Primary Care Provider] -
[2022-03-09] MEDS ORDERED: methylPREDNISolone 125 MG/2 ML VIAL IV STA (19:29)
[2022-03-09 19:32] LABS: Cast Urine Automated 0 /lpf (0-5)
[2022-03-09] MEDS ORDERED: SODIUM CHLORIDE 0.9% 1000ML 1,000 ML IV SCH (19:45)
[2022-03-09] MEDS ORDERED: ALBUTEROL HFA 8 GM INHALER INH PRN (22:48)
[2022-03-09] MEDS ORDERED: ONDANSETRON INJ 2 MG/ML 2 ML VIAL IV PRN (22:48)
--- NOTE | 2022-03-09 23:00 | History and Physical Report ---
DATE OF ADMISSION: 03/09/2022 CHIEF COMPLAINT: Flu-like symptoms. HISTORY OF PRESENT ILLNESS: This is a 26-year-old female with past medical history significant for asthma, obesity. The patient is 38-week , 1, para 0. Comes because of feeling flu-like symptoms since last Tuesday with cough, nasal congestion, generalized body aches associated with some nausea, vomiting and also the patient was complaining of lower groin pain and hip pain. Denies any fevers, no chest pain. Has some mild headache. No blurred visions, no earache, no runny nose, no sore throat. Appetite is not that great today. She is not able to keep her crackers down today. No diarrhea or constipation. Her urine is dark. Does not have burning micturition. Resting currently, saturating okay on room air. ALLERGIES: HOUSE DUST, POLLEN EXTRACTS. PAST MEDICAL HISTORY: As mentioned above. PAST SURGICAL HISTORY: Dental surgery, laparoscopy, cholecystectomy, IUD placement. MEDICATIONS: The patient is on vitamins, albuterol 2 puffs inhalation q.i.d. p.r.n., Pepcid 20 mg p.o. daily p.r.n. FAMILY HISTORY: Significant for brother has asthma, aunt has ovarian cancer, uncle has leukemia, mother has rheumatoid arthritis. SOCIAL HISTORY: No smoking, no alcohol, no drug use. REVIEW OF SYSTEMS: As per HPI. Rest of review of systems is negative. PHYSICAL EXAMINATION: GENERAL: The patient is morbidly obese, currently not in acute distress. VITAL SIGNS: Temperature 36.6, pulse 114, respiratory rate 22, blood pressure 112/78, oxygen 99% on room air. HEENT: Pupils equal, round and reactive to light. Oral mucosa moist. NECK: No JVD, no neck masses. CARDIOVASCULAR: S1 and S2 heard. Tachycardia. No murmurs. RESPIRATORY SYSTEM: Normal AP diameter. No accessory muscle use. No wheezing, no crackles. ABDOMEN: Soft, bowel sounds sluggish, nontender. CENTRAL NERVOUS SYSTEM: Cranial nerves II-XII grossly intact, nonfocal. EXTREMITIES: mild pedal edema, no erythema seen. LABORATORY DATA: WBC 10.7, hemoglobin 10.9, hematocrit 32.4, platelets 163. Sodium 132, potassium 3.6, chloride 101, bicarbonate 21, BUN 6, creatinine 0.5, serum glucose 82, calcium 8, magnesium 1.4, total bilirubin 0.5, AST 21, ALT 14, alkaline phosphatase 113. TSH 1.3. Urinalysis +3 leukocyte esterase, +2 bacteria. Influenza A detected. Other respiratory Bio[employer] negative. IMAGING DATA: Chest x-ray, no acute findings. EKG: Poor quality. Sinus tachycardia with rate of 131 with chronic T-wave inversion in multiple leads(rate related?). ASSESSMENT AND PLAN: This is a 26-year-old female who presents with flu-like symptoms and positive for FLU A and urinary tract infection. 1. Influenza A. Discussed with LINING FELLER, the patient is 38-week and is 1, para 0. Ok for Tamiflu and short course of steroids and nebs p.r.n., IV fluids. Closely monitor in the [facility] tele. 2. Urinary tract infection (UTI), starting on Rocephin. Will follow the cultures. 3. at 38 weeks'. 1, para 0. Continue on vitamins. LINING FELLER consult. 4. Tachycardia. Getting fluids and management as above. Will follow repeat ekg. 5. Deep venous thrombosis prophylaxis: Sequential compression devices. DISPOSITION: Closely monitor in the [facility] tele. Expect to discharge home and follow with her family doctor and LINING FELLER. Job ID: [id number] [facility]ENTER[facility] Paul
[2022-03-09] MEDS: cefTRIAXone SODIUM 2,000 MG in DEXTROSE 5% 50 ML IV SCH (23:37)
[2022-03-09] MEDS: SODIUM CHLORIDE 0.9% 1000ML 1,000 ML IV SCH (23:37)
--- NOTE | 2022-03-10 01:18 | OB/GYN Consultation ---
Date of Consultation March 10, 2022 Assessment & Plan (1) Influenza A virus subtype H1 present: (2) Encounter for supervision of normal intrauterine in primigravida, antepartum: Plan Appreciate influenza management by primary. From standpoint, agree with current list of medications that patient is currently being treated. Agree with Tamiflu, and if there is recommendation for steroids to improve lung function, this is also ok from OB standpoint. Will plan to obtain non-stress test daily to monitor well-being. Patient is aware to notify OB team if contractions increase to every 2 min, bloody vaginal show, breaking of membranes, or decrease movement. History of Present Illness Reason for Consultation: 37w , +influenza A Requesting Physician: Dr Yang Attending Physician: Fabricio Jurado MD History of Present Illness 26yo @ 37 /, admitted from ER with +influenza A. Presented with cough, congestion, nausea/vomiting. Some increased pelvic pressure. Has been feeling unwell since Tuesday. + movement, but not as much as typical. No vaginal bleeding, no leaking fluid, no contractions. with GBS+, obesity. Allergies Allergy/AdvReac Type Severity Reaction Status Date / Time house dust Allergy Mild Sneezing Verified 03/09/22 21:07 pollen extracts Allergy Mild Sneezing Verified 03/09/22 21:07 Home Medications Medication Instructions Recorded Confirmed Type prenat.vits,heather,icp-pdpj-izscr 1 tab PO DAILY 07/14/21 03/09/22 History albuterol sulfate 90 mcg/actuation 2 inha inhalation QID PRN 12/15/21 03/09/22 Rx aerosol inhaler shortness of breath or wheezing #6.7 grams Sudafed Tab 1 tab PO BID PRN Congestion 03/09/22 03/09/22 History famotidine 10 mg tablet (Pepcid AC) 10 mg PO DAILY PRN Acid Reflux 03/09/22 03/09/22 History Patient History Medical History Anxiety Asthma Depression GERD (gastroesophageal reflux disease) History of chicken pox Hx of chlamydia infection Infectious mononucleosis Peritonsillar abscess HX Temporomandibular joint disorder CLICKS LEFT SIDE-NO LOCKING Surgical History History of cholecystectomy History of tonsillectomy History of tooth extraction WISDOM TEETH Family History Aunt Ovarian cancer Melanoma Uncle Acute leukemia Mother Arthritis Denies family history of Breast cancer Lung cancer Colorectal cancer Social History Smoking Status: Never smoker Second Hand Exposure: No; Do You Dip or Chew Tobacco: No; Hx Alcohol Use: No Hx Substance Use: No Preferred Language: Albanian Communication Ability: Effective Visual Impairment: Partially Limited 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 Abdomen: soft, non-tender, gravid. Neurological: The patient was oriented to person, place, and time. Mood and affect were appropriate. Extremities: No edema, no calf tenderness. Results & Data ([facility]) Vital Signs (Past 12 Hours) Vital Signs Temp Pulse Pulse Resp BP BP Pulse Ox 03/10/22 00:04 110 H 03/09/22 22:45 03/09/22 22:45 37.1 C 96 H 18 137/76 95 03/09/22 19:00 114 H 22 112/78 99 03/09/22 17:00 114 H 18 114/79 100 03/09/22 15:10 120 H 20 98 03/09/22 14:41 36.6 C 133 H 18 132/84 98 O2 Del Method 03/10/22 00:04 03/09/22 22:45 Room Air 03/09/22 22:45 Room Air 03/09/22 19:00 03/09/22 17:00 03/09/22 15:10 Room Air 03/09/22 14:41 Room Air PG Care Time/CCT Total # of Minutes Spent Total Time Spent with Patient: Total time spent is greater than 50% in coordination of care (as documented) at patient's floor/unit and/or counseling patient: Coding Level of Care Code 38871 Office/OBS Consult Lvl 3 Diagnoses Influenza A virus subtype H1 present Encounter for supervision of normal intrauterine in primigravida, antepartum Z34.00
[2022-03-10] MEDS: FAMOTIDINE 10 MG TABLET PO PRN (02:26)
[2022-03-10 06:14] LABS: Basophils # (auto) 0.01 K/uL (0-0.2); Basophils % (auto) 0.1 %; Hematocrit (blood only) 29.1 % (34.1-44.9); Immature Granulocytes # (auto) 0.11 K/uL (0.00-0.02); Immature Granulocytes % (auto) 1.4 %; Lymphocytes # (auto) 0.51 K/uL (1.2-3.4); Lymphocytes % (auto) 6.7 %; Mean Corpuscular Hemoglobin 29.9 pg (25.0-34.0); Mean Corpuscular Hgb Conc 34.4 g/dL (32.0-36.0); Mean Corpuscular Volume 86.9 fL (80.0-100.0); Mean Platelet Volume 10.6 fL (9.4-12.3); Monocytes # (auto) 0.55 K/uL (0.24-0.82); Monocytes % (auto) 7.2 %; Neutrophils # (auto) 6.44 K/uL (1.4-6.5); Neutrophils % (auto) 84.6 %; Platelet Count 148 K/uL (130-400); RDW Coefficient of Variation 12.9 % (11.5-14.5); RDW Standard Deviation 40.5 fL (36.4-46.3); Red Blood Count 3.35 M/uL (3.93-5.22); White Blood Count 7.62 K/ul (4.8-10.8)
[2022-03-10 06:52] LABS: Anion Gap 9 (3-11); BUN Creatinine Ratio 11.6 (10-20); Blood Urea Nitrogen 5 mg/dl (6-23); Calcium 7.5 mg/dl (8.5-10.1); Carbon Dioxide 18 mmol/L (21-32); Chloride 110 mmol/L (98-107); Creatinine Clr Calc Pharmacy 234.9 ml/min; Est GFR (African American) > 150.0 ml/min; Est GFR (Non-African American) 138.4 ml/min; Glucose 102 mg/dl (70-99(Fasting)); Magnesium 1.9 mg/dl (1.7-2.4); Potassium 3.6 mmol/L (3.5-5.1); Sodium 137 mmol/L (136-145)
--- NOTE | 2022-03-10 07:57 | Communication Note ---
Date of Service: March 10, 2022 Addendum: Patient also has asthma. Received steroids in ER.Currently no obvious wheezing. ELECTRICAL HELPER ok for short course of steroids. Will do prednisone 40m po daily x 4 days.Nebs prn. Thanks
--- NOTE | 2022-03-10 08:48 | Electrocardiogram Report ---
Test Reason : Blood Pressure : / mmHG Vent. Rate : 095 BPM Atrial Rate : 095 BPM P-R Int : 124 ms QRS Dur : 086 ms QT Int : 340 ms P-R-T Axes : 076 052 260 degrees QTc Int : 427 ms Normal sinus rhythm Chronic T-wave inversion in multiple leads Abnormal ECG When compared with ECG of 09-MAR-2022 15:38, No significant change was found Confirmed by Wes Snyder ([id number]) on 03/10/2022 8:48:02 AM Referred By: REFERRED SELF Confirmed By:Wes Snyder
[2022-03-10] MEDS: OSELTAMIVIR PHOSPHATE 75 MG CAP PO SCH ×2 (09:22→20:48)
[2022-03-10] MEDS: SODIUM CHLORIDE 0.9% 1000ML 1,000 ML IV SCH (09:23)
[2022-03-10] MEDS: predniSONE 20 MG TAB PO SCH (09:23)
[2022-03-10] MEDS: PRENATAL VITAMIN 1 TAB PO SCH (09:23)
--- NOTE | 2022-03-10 12:09 | Hospitalist Progress Note ---
Date of Service March 10, 2022 Assessment & Plan (1) Influenza A virus subtype H1 present: Plan: ASSESSMENT AND PLAN: This is a 26-year-old female who presents with flu-like symptoms and positive for FLU A and urinary tract infection. 1. Influenza A. Mild asthma exacerbation -- On room air --Chest x-ray: No pneumonia --Continue prednisone 40 mg p.o. daily x2-3 more days Continue as needed nebs Continue Tamiflu day number 2 out of 5 2. Urinary tract infection (UTI) -- Afebrile --Urine culture: Pending --- Continue ceftriaxone IV daily 3. at 38 weeks'. 1, para 0. -- VFX ARTIST service on board 4. Tachycardia. -- Gentle IV fluids, heart rate improving 5. Deep venous thrombosis prophylaxis: Sequential compression devices. plan of care discussed with patient in detail and at length all questions answered she is understanding, agreeable, comfortable with the plan of care Admission and Anticipated Discharge Date Admission Date: March 09, 2022 Subjective Follow-up for mild asthma exacerbation, influenza infection, UTI, etc. Seen resting in bed, comfortable, sitting up On room air States she feels little bit better compared to yesterday Still having some dry cough, occasional shortness of breath, nasal drainage- clear No fevers or chills, chest pain, palpitation, dizziness, headache Denies abdominal pain, has some lower back pain No leg pain No contractions noted No other symptoms Review of Systems Review of Systems: all noted and negative except for above Physical Exam Physical Exam: General- oriented x 3, not in distress, speaks in sentences with no effort or accessory muscle use Eyes- anicteric Neck- no JVD Lungs-faint wheezing bilaterally, no crackles Good air entry bilaterally Heart- normal rate, regular rhythm; no murmurs Abdomen- normal bowel sounds, nondistended, soft, nontender Extremities- trace pretibial edema, no calf tenderness Neuro- alert, oriented x 3; no gross focal neurologic deficits Skin- warm & dry Results & Data Results & Data ([facility]) Vital Signs (Past 12 Hours) Vital Signs Temp Pulse Pulse Resp BP Pulse Ox O2 Del Method 03/10/22 07:51 Room Air 03/10/22 07:33 36.6 C 94 H 17 116/76 Room Air 03/10/22 06:07 91 H 03/10/22 03:00 36.9 C 94 H 20 125/78 94 Room Air all noted and reviewed including below
[2022-03-10] MEDS: ALBUT/IPRATROP 3MG/0.5MG NEB 3 ML VIAL NEB PRN ×2 (13:08→20:33)
[2022-03-10] MEDS: cefTRIAXone SODIUM 2,000 MG in DEXTROSE 5% 50 ML IV SCH (22:13)
[2022-03-11] MEDS: ALBUT/IPRATROP 3MG/0.5MG NEB 3 ML VIAL NEB PRN (07:03)
[2022-03-11] MEDS: FAMOTIDINE 10 MG TABLET PO PRN (07:25)
[2022-03-11] MEDS: OSELTAMIVIR PHOSPHATE 75 MG CAP PO SCH ×2 (07:27→19:57)
[2022-03-11] MEDS: PRENATAL VITAMIN 1 TAB PO SCH (07:27)
[2022-03-11] MEDS: predniSONE 20 MG TAB PO SCH (07:27)
[2022-03-11 09:08] LABS: Basophils # (auto) 0.02 K/uL (0-0.2); Basophils % (auto) 0.3 %; Eosinophils # (auto) 0.02 K/uL (0-0.50); Eosinophils % (auto) 0.3 %; Hemoglobin 10.2 g/dl (12.0-16.0); Immature Granulocytes # (auto) 0.13 K/uL (0.00-0.02); Immature Granulocytes % (auto) 2.2 %; Lymphocytes # (auto) 1.26 K/uL (1.2-3.4); Lymphocytes % (auto) 21.4 %; Mean Corpuscular Hemoglobin 29.9 pg (25.0-34.0); Mean Platelet Volume 10.8 fL (9.4-12.3); Monocytes # (auto) 0.45 K/uL (0.24-0.82); Monocytes % (auto) 7.6 %; Neutrophils # (auto) 4.02 K/uL (1.4-6.5); Neutrophils % (auto) 68.2 %; Platelet Count 164 K/uL (130-400); RDW Coefficient of Variation 13.2 % (11.5-14.5); RDW Standard Deviation 42.4 fL (36.4-46.3); Red Blood Count 3.41 M/uL (3.93-5.22)
--- NOTE | 2022-03-11 09:16 | Obstetrical Progress Note ---
Date of Service March 11, 2022 Assessment & Plan (1) Encounter for supervision of normal intrauterine in primigravida, antepartum: Plan: continue daily NST's to contact [facility] production hardener for any obstetric concerns. Admission and Anticipated Discharge Date Admission Date: March 09, 2022 Subjective continues to have persistent cough. feeling movement. no contractions, leaking fluid or blood show. had one brief episode of sharp pain under her umbilicus while she was turning in bed. no recurrences since then. nebulizer treatments have been helping Review of Systems Review of Systems: All systems reviewed & are unremarkable except as noted in HPI & below Physical Exam Constitutional: WD/WN, vitals as above Psychiatric: A+Ox3, euthymic affect Results & Data ([facility]) Vital Signs (Past 12 Hours) Vital Signs Temp Pulse Pulse Resp BP Pulse Ox O2 Del Method 03/11/22 08:00 88 03/11/22 07:31 98.1 F 85 19 126/78 97 Room Air 03/11/22 07:06 98 H 18 96 Room Air 03/11/22 03:00 98.1 F 87 18 117/66 96 Room Air 03/11/22 00:14 106 H 03/10/22 22:00 97.9 F 97 H 20 129/75 95 Room Air 03/10/22 21:31 Room Air PG Care Time/CCT Total # of Minutes Spent Total Time Spent with Patient: Total time spent is greater than 50% in coordination of care (as documented) at patient's floor/unit and/or counseling patient: Coding Level of Care Code 38656 Subseq Obs Care Lvl 2 Diagnoses Encounter for supervision of normal intrauterine in primigravida, antepartum Z34.00
[2022-03-11 09:27] LABS: BUN Creatinine Ratio 8.5 (10-20); Calcium 7.8 mg/dl (8.5-10.1); Creatinine Clr Calc Pharmacy 172.7 ml/min; Est GFR (African American) 144.6 ml/min; Est GFR (Non-African American) 124.7 ml/min; Magnesium 1.7 mg/dl (1.7-2.4); Potassium 2.9 mmol/L (3.5-5.1)
--- NOTE | 2022-03-11 11:07 | XRay Report ---
SINGLE VIEW CHEST CLINICAL HISTORY: Cough. Flulike symptom FINDINGS: An AP, portable, upright chest radiograph is compared to study dated 03/09/2022. The cardio mediastinal silhouette is unremarkable. The lungs and pleural spaces are clear. No pneumothorax is se en. The bony thorax is grossly intact. IMPRESSION: No active disease in the chest. ACT 112: Negative or not required by law. Electronically signed by: Bob Mclaughlin M.D. 03/11/2022 11:06 AM
[2022-03-11] MEDS: POTASSIUM CHLORIDE CRTAB 20 MEQ TABCR PO SCH ×2 (13:06→19:57)
[2022-03-11] MEDS: guaiFENesin 600 MG TABCR PO SCH ×2 (13:06→19:57)
[2022-03-11] MEDS: POTASSIUM CHLORIDE / WTR 10 MEQ/100 ML PLCT IV SCH ×2 (13:07→14:21)
[2022-03-11] MEDS: LEVALBUTEROL HCL 1.25 MG/3 ML NEB NEB SCH ×2 (13:17→19:44)
--- NOTE | 2022-03-11 13:34 | Hospitalist Progress Note ---
Date of Service March 11, 2022 Assessment & Plan (1) Influenza A virus subtype H1 present: Plan: ASSESSMENT AND PLAN: This is a 26-year-old female who presents with flu-like symptoms and positive for FLU A and urinary tract infection. 1. Influenza A. Mild asthma exacerbation -- On room air --Chest x-ray: No pneumonia --Feels somewhat better compared to yesterday Still has wheezing Repeat chest x-ray Change nebs to levalbuterol p.o. 3 times daily Continue prednisone 40 mg daily Add Mucinex twice daily Incentive spirometry, flutter valve Continue Tamiflu day number 3 out of 5 2. Urinary tract infection (UTI) -- Afebrile --Urine culture: Pending --- Continue ceftriaxone IV daily 3. at 38 weeks'. 1, para 0. -- SUPERVISOR BEAM DEPARTMENT service on board 4. Tachycardia. -- Gentle IV fluids, heart rate improved 5. Deep venous thrombosis prophylaxis: Sequential compression devices. plan of care discussed with patient in detail and at length all questions answered she is understanding, agreeable, comfortable with the plan of care Admission and Anticipated Discharge Date Admission Date: March 09, 2022 Subjective Follow-up for asthma exacerbation, influenza infection, etc. Seen resting in bed, comfortable, not in distress States she feels somewhat better compared to yesterday Still having dry cough No chest pain, fevers or chills, palpitations, dizziness No leg pain No other symptoms Review of Systems Review of Systems: all noted and negative except for above Physical Exam Physical Exam: General- oriented x 3, not in distress, speaks in sentences with no effort or accessory muscle use Eyes- anicteric Neck- no JVD Lungs- Feet wrist bilaterally right greater than left No crackles Heart- normal rate, regular rhythm; no murmurs Abdomen- normal bowel sounds, nondistended, soft, nontender Extremities- trace pretibial edema, no calf tenderness Neuro- alert, oriented x 3; no gross focal neurologic deficits Skin- warm & dry Results & Data Results & Data ([facility]) Vital Signs (Past 12 Hours) Vital Signs Temp Pulse Pulse Resp BP Pulse Ox O2 Del Method 03/11/22 13:17 89 18 98 Room Air 03/11/22 11:13 36.0 C L 89 18 121/77 96 Room Air 03/11/22 08:00 88 03/11/22 07:31 36.7 C 85 19 126/78 97 Room Air 03/11/22 07:06 98 H 18 96 Room Air 03/11/22 03:00 36.7 C 87 18 117/66 96 Room Air all noted and reviewed including below
[2022-03-11] MEDS ORDERED: ACETAMINOPHEN 325 MG TAB PO PRN (17:04)
[2022-03-11] MEDS: cefTRIAXone SODIUM 2,000 MG in DEXTROSE 5% 50 ML IV SCH (22:46)
[2022-03-12] MEDS: LEVALBUTEROL HCL 1.25 MG/3 ML NEB NEB SCH (07:29)
[2022-03-12] MEDS: FAMOTIDINE 10 MG TABLET PO PRN (08:46)
[2022-03-12] MEDS: OSELTAMIVIR PHOSPHATE 75 MG CAP PO SCH (08:46)
[2022-03-12] MEDS: predniSONE 20 MG TAB PO SCH (08:46)
[2022-03-12] MEDS: guaiFENesin 600 MG TABCR PO SCH (08:46)
[2022-03-12] MEDS: PRENATAL VITAMIN 1 TAB PO SCH (08:46)
[2022-03-12] MEDS: POTASSIUM CHLORIDE CRTAB 20 MEQ TABCR PO SCH (08:48)
--- NOTE | 2022-03-12 09:05 | Obstetrical Progress Note ---
Date of Service March 12, 2022 Assessment & Plan (1) Encounter for supervision of normal intrauterine in primigravida, antepartum: Plan: -Continue daily NST's -Please contact [facility] architecture consultant for any obstetric concerns. Admission and Anticipated Discharge Date Admission Date: March 09, 2022 Subjective Resting comfortably. Feels a little better than yesterday but still significant cough. Started on PO steroids and scheduled neb treatments which is helping. +FM before bed last night; denies ctx, LOF, VB Physical Exam Gastrointestinal (Abdomen): Soft, gravid, NT Genitourinary: NST reactive Results & Data ([facility]) Vital Signs (Past 12 Hours) Vital Signs Temp Pulse Pulse Resp BP Pulse Ox O2 Del Method 03/12/22 07:53 97.9 F 101 H 20 132/76 97 Room Air 03/12/22 07:29 85 16 97 Room Air 03/12/22 07:22 83 03/12/22 02:42 98.1 F 85 18 123/74 96 Room Air 03/12/22 01:55 Room Air 03/11/22 23:50 89 03/11/22 22:42 97.7 F 87 18 111/73 96 Room Air PG Care Time/CCT Total # of Minutes Spent Total Time Spent with Patient: Total time spent is greater than 50% in coordination of care (as documented) at patient's floor/unit and/or counseling patient: Coding Level of Care Code None Diagnoses Encounter for supervision of normal intrauterine in primigravida, antepartum Z34.00
[2022-03-12 11:01] LABS: BUN Creatinine Ratio 8.8 (10-20); Calcium 8.1 mg/dl (8.5-10.1); Creatinine Clr Calc Pharmacy 149.8 ml/min; Magnesium 1.6 mg/dl (1.7-2.4); Potassium 3.4 mmol/L (3.5-5.1)
--- NOTE | 2022-03-12 11:18 | Discharge Summary ---
Discharge Summary Date of Service March 12, 2022 delayed entry date of service noted above Notes For Next Care Provider Repeat potassium level on follow-up with PCP next week Medication Changes From Visit Prednisone 40 mg p.o. daily x2 days Tamiflu 75 mg p.o. twice daily x2 more days Mucinex 600 mg p.o. twice daily x5 more days Nebs as needed Potassium chloride 40 mEq p.o. daily x2 days Admission HPI Per Admitting Provider HISTORY OF PRESENT ILLNESS: This is a 26-year-old female with past medical history significant for asthma, obesity. The patient is 38-week , 1, para 0. Comes because of feeling flu-like symptoms since last Tuesday with cough, nasal congestion, generalized body aches associated with some nausea, vomiting and also the patient was complaining of lower groin pain and hip pain. Denies any fevers, no chest pain. Has some mild headache. No blurred visions, no earache, no runny nose, no sore throat. Appetite is not that great today. She is not able to keep her crackers down today. No diarrhea or constipation. Her urine is dark. Does not have burning micturition. Resting currently, saturating okay on room air. Admission Exam Per Admitting Provider GENERAL: The patient is morbidly obese, currently not in acute distress. VITAL SIGNS: Temperature 36.6, pulse 114, respiratory rate 22, blood pressure 112/78, oxygen 99% on room air. HEENT: Pupils equal, round and reactive to light. Oral mucosa moist. NECK: No JVD, no neck masses. CARDIOVASCULAR: S1 and S2 heard. Tachycardia. No murmurs. RESPIRATORY SYSTEM: Normal AP diameter. No accessory muscle use. No wheezing, no crackles. ABDOMEN: Soft, bowel sounds sluggish, nontender. CENTRAL NERVOUS SYSTEM: Cranial nerves II-XII grossly intact, nonfocal. EXTREMITIES: mild pedal edema, no erythema seen. Principal Dx & Hospital Course #1 = Principal Diagnosis (1) Influenza A virus subtype H1 present: ASSESSMENT AND PLAN: This is a 26-year-old female who presents with flu-like symptoms and positive for FLU A and urinary tract infection. 1. Influenza A Mild asthma exacerbation -- On room air -- Chest x-ray: No pneumonia -- given Nebs TID Prednisone 40 mg daily Mucinex twice daily Tamiflu Incentive spirometry, Flutter Valve -- patient clinically improved wheezing resolved Repeat chest x-ray: No active disease in the chest. -- discharge on: Prednisone 40 mg daily x2 days Tamiflu to complete 2 more days Mucinex x5 more days Nebs as needed Follow-up with primary care physician on Tuesday or Tuesday Follow-up with FINNISH RUBBER service as scheduled 2. Urinary tract infection (UTI), ruled out -- Afebrile --Urine culture: Negative --- Continue ceftriaxone IV daily 3. at 38 weeks'. 1, para 0. -- FINNISH RUBBER service consulted No issues while admitted Follow-up with FINNISH RUBBER as scheduled 4. Tachycardia. -- Gentle IV fluids given, heart rate improved 5. Deep venous thrombosis prophylaxis: Sequential compression devices. plan of care discussed with patient in detail and at length all questions answered she is understanding, agreeable, comfortable with the plan of care Discharge Exam General- oriented x 3, not in distress, speaks in sentences with no effort or accessory muscle use Eyes- anicteric Neck- no JVD Lungs- clear breath sounds bilaterally, no wheezing, no crackles Heart- normal rate, regular rhythm; no murmurs Abdomen- normal bowel sounds, nondistended, soft, nontender Extremities- trace pretibial edema, no calf tenderness Neuro- alert, oriented x 3; no gross focal neurologic deficits Skin- warm & dry Updated Medication List Medication Instructions Recorded Confirmed Type prenat.vits,heather,dog-cruj-yfpis 1 tab PO DAILY 07/14/21 03/09/22 History albuterol sulfate 90 mcg/actuation 2 inha inhalation QID PRN 12/15/21 03/09/22 Rx aerosol inhaler shortness of breath or wheezing #6.7 grams famotidine 10 mg tablet (Pepcid AC) 10 mg PO DAILY PRN Acid Reflux 03/09/22 03/09/22 History cefdinir 300 mg capsule 300 mg PO BID 4 days #8 caps 03/12/22 Rx guaifenesin 600 mg tablet, 600 mg PO Q12 5 days #10 tabs 03/12/22 Rx extended release 12 hr (Mucinex) levalbuterol HCl 1.25 mg/3 mL 1.25 mg (3 mL) NEB TIDR 2 days #75 03/12/22 Rx solution for nebulization mL oseltamivir 75 mg capsule (Tamiflu) 75 mg PO BID #5 caps 03/12/22 Rx potassium chloride 20 mEq 40 meq PO DAILY 2 days #4 tabs 03/12/22 Rx tablet,extended release(part/cryst) prednisone 20 mg tablet 40 mg PO DAILY 2 days #4 tabs 03/12/22 Rx Hospital Stay Data Consultations 03/09/22 19:39 ED Decision to Admit Stat 03/09/22 22:48 Consult Obstetrics Routine Procedures Performed XR chest 1V portable HISTORY: 26 years-old Female weakness acute weakness COMPARISON: 12/15/2021 TECHNIQUE: AP view the chest FINDINGS: Cardiomediastinal and hilar silhouettes are within normal limits. No pneumothorax, pleural effusion, airspace consolidation or overt pulmonary edema. Mild coarsening of interstitium is likely secondary to patient body habitus. Bones appear grossly intact. IMPRESSION: No acute process. ACT 112: Negative or not required by law. The above report was generated using voice recognition software. It may contain grammatical, syntax or spelling errors. Electronically signed by: Derek Peters M.D. 03/09/2022 3:39 PM - SINGLE VIEW CHEST CLINICAL HISTORY: Cough. Flulike symptom FINDINGS: An AP, portable, upright chest radiograph is compared to study dated 03/09/2022. The cardiomediastinal silhouette is unremarkable. The lungs and pleural spaces are clear. No pneumothorax is seen. The bony thorax is grossly intact. IMPRESSION: No active disease in the chest. ACT 112: Negative or not required by law. Electronically signed by: Bob Mclaughlin M.D. 03/11/2022 11:06 AM Pending Results Patient Have Any Pending Studies at Discharge: No Discharge Instructions Given to Patient (Per Discharging Provider) PLEASE REFER TO YOUR NEW MEDICATION LIST AND FOLLOW INSTRUCTIONS CAREFULLY. YOUR NEW MEDICATIONS INCLUDE: Cefdinir- antibiotics for acute bronchitis Prednisone- steroid for asthma exacerbation Levalbuterol- nebulizer treatment Mucinex- for cough Continue using Incentive Spirometer every 4 hours. PLEASE CALL YOUR PRIMARY CARE PHYSICIAN OR RETURN TO THE ER IF WITH WORSENING OF SYMPTOMS, INCLUDING cough, sputum production, fever/chills, shortness of breath, etc FOLLOW UP WITH PRIMARY CARE PHYSICIAN in 1 week. FOLLOW UP WITH OBGYN SCHEDULED. Total Time Total Time Spent Total Time Spent (In Minutes): >30 minutes
--- NOTE | 2022-03-12 11:18 | Hospitalist Progress Note ---
Date of Service March 12, 2022 delayed entry date of service noted above Assessment & Plan (1) Influenza A virus subtype H1 present: Plan: ASSESSMENT AND PLAN: This is a 26-year-old female who presents with flu-like symptoms and positive for FLU A and urinary tract infection. 1. Influenza A Mild asthma exacerbation -- On room air -- Chest x-ray: No pneumonia Repeat chest x-ray: No active disease in the chest. -- given Nebs TID Prednisone 40 mg daily Mucinex twice daily Tamiflu Incentive spirometry, Flutter Valve -- patient clinically improved wheezing resolved -- discharge on: Prednisone 40 mg daily x2 days Tamiflu to complete 2 more days Mucinex x5 more days Nebs as needed Follow-up with primary care physician on Tuesday or Tuesday Follow-up with COMPUTER NETWORKER service as scheduled 2. Urinary tract infection (UTI), ruled out -- Afebrile --Urine culture: Negative --- Continue ceftriaxone IV daily 3. at 38 weeks'. 1, para 0. -- COMPUTER NETWORKER service consulted No issues while admitted Follow-up with COMPUTER NETWORKER as scheduled 4. Tachycardia. -- Gentle IV fluids given, heart rate improved 5. Deep venous thrombosis prophylaxis: Sequential compression devices. plan of care discussed with patient in detail and at length all questions answered she is understanding, agreeable, comfortable with the plan of care Admission and Anticipated Discharge Date Admission Date: March 09, 2022 Subjective ff up for asthma exacerbation, influenza infection, etc seen resting in bed, comfortable in good spirits states she feels better overall breathing is much better cough also improved no fever/chills no chest pain, dyspnea, palpitations, dizziness no other symptoms states she is ready for discharge Review of Systems Review of Systems: all noted and negative except for above Physical Exam Physical Exam: General- oriented x 3, not in distress, speaks in sentences with no effort or accessory muscle use Eyes- anicteric Neck- no JVD Lungs- clear breath sounds bilaterally, no wheezing, no crackles Heart- normal rate, regular rhythm; no murmurs Abdomen- normal bowel sounds, nondistended, soft, nontender Extremities- trace pretibial edema, no calf tenderness Neuro- alert, oriented x 3; no gross focal neurologic deficits Skin- warm & dry Results & Data Results & Data ([facility]) Vital Signs (Past 12 Hours) Vital Signs Temp Pulse Pulse Resp BP Pulse Ox O2 Del Method 03/12/22 07:53 36.6 C 101 H 20 132/76 97 Room Air 03/12/22 07:29 85 16 97 Room Air 03/12/22 07:22 83 03/12/22 02:42 36.7 C 85 18 123/74 96 Room Air 03/12/22 01:55 Room Air 03/11/22 23:50 89 all noted and reviewed including below
== END 2022-03-12 13:49 | disposition home or self-care (01) | DRG 832 ==
LOC: ED 14:25 → SUATTDRO 21:27 → 2W 21:27
DX: O99.283 Endocrine, nutritional and metabolic diseases complicating pregnancy, third trimester; Z3A.38 38 weeks gestation of pregnancy; O99.213 Obesity complicating pregnancy, third trimester; O99.513 Diseases of the respiratory system complicating pregnancy, third trimester; E83.42 Hypomagnesemia; J45.901 Unspecified asthma with (acute) exacerbation; J10.1 Influenza due to other identified influenza virus with other respiratory manifestations; E66.01 Morbid (severe) obesity due to excess calories; O98.513 Other viral diseases complicating pregnancy, third trimester; Z77.22 Contact with and (suspected) exposure to environmental tobacco smoke (acute) (chronic); E86.0 Dehydration

== ENCOUNTER 2022-03-26 08:02 | Inpatient (IN) ==
[2022-03-26] MEDS ORDERED: OXYTOCIN 30 UNITS/500 ML BAG IV PRN ×2 (08:27→08:29)
[2022-03-26] MEDS ORDERED: PENICILLIN G POTASSIUM 6 MU in DEXTROSE 5% 250 ML IV STA (08:27)
[2022-03-26] MEDS ORDERED: LIDOCAINE 1% LOCAL 20 ML VIAL INFIL PRN (08:27)
--- NOTE | 2022-03-26 08:42 | History & Physical Report ---
Date of Service March 26, 2022 Assessment & Plan (1) Elective induction of labor planned: Plan: Patient is a 26 yo at 40+1 WGA presenting to labor and delivery for induction. Blood type: B+, GBS pos, rubella equivocal Penicillin ordered, will need MMR post delivery Plan to start oxytocin and rupture membranes later after epidural if necessary Proceed with labor and vaginal delivery (2) GBS (group B streptococcus) UTI complicating : (3) Need for rubella vaccination: Admission and Anticipated Discharge Date Admission Date: March 26, 2022 History of Present Illness Chief Complaint: induction of labor Primary Care Provider: Cayetano Rubin MD Patient is a 26 yo female currently at 40+1WGA with an VITO 03/25/2022 as determined by LMP who is here for induction of labor. Her was complicated by obesity. No timeable contractions currently; movement present; denies substantial fluid loss, "trickle of fluid" on morning; denies bloody show External FHT and external uterine monitors used; category I tracing; normal FHT variability, baby w/ sporadic arrhythmia Had regular appointments with OB. Labs: (08/14/2021) Blood type: B+ Antibody screen: neg Hgb: 11.8 (today) Hct: 35.1% (today) WBC: 10.25 (today) Plt: 245 (today) Rubella: equivocal VDRL/RPR: neg Gonorrhea: neg Chlamydia: neg HIV: neg HbSAg: neg GBS: pos Other screens: cfdna; low risk, mln msafp; neg, smp Allergies Allergy/AdvReac Type Severity Reaction Status Date / Time house dust Allergy Mild Sneezing Verified 03/25/22 15:41 pollen extracts Allergy Mild Sneezing Verified 03/25/22 15:41 Home Medications Medication Instructions Recorded Confirmed Type prenat.vits,heather,jzy-[id number] 1 tab PO DAILY 07/14/21 03/26/22 History albuterol sulfate 90 mcg/actuation 2 inha inhalation QID PRN 12/15/21 03/26/22 Rx aerosol inhaler shortness of breath or wheezing #6.7 grams famotidine 10 mg tablet (Pepcid AC) 10 mg PO DAILY PRN Acid Reflux 03/09/22 03/26/22 History ondansetron 4 mg disintegrating 4 mg PO Q8H PRN nausea and 03/24/22 03/26/22 Rx tablet vomiting #5 tabs Patient History Medical History Anxiety Asthma since childhood Depression 4 years ago since her divorce GERD (gastroesophageal reflux disease) History of chicken pox Hx of chlamydia infection Infectious mononucleosis in high school Obesity Peritonsillar abscess HX Temporomandibular joint disorder CLICKS LEFT SIDE-NO LOCKING Surgical History History of cholecystectomy History of tonsillectomy History of tooth extraction WISDOM TEETH Family History Aunt Ovarian cancer Melanoma Uncle Acute leukemia Mother Arthritis Denies family history of Breast cancer Lung cancer Colorectal cancer Social History Smoking Status: Never smoker Second Hand Exposure: No; Hx Alcohol Use: No Hx Substance Use: No Preferred Language: Tristanian Communication Ability: Effective Visual Impairment: Partially Limited Shift Stacker Required: No Beliefs That Will Affect Care: None marital status: marital status details: NENO Herrera (27) [phone] Current Living Situation: Significant Other Current Living Situation Comment: FOB & 1 dog current occupational status: employed current occupation: [employer] How many Children do You have: 0 Other Information That Helps Us Care for You: No Feels Safe at Home: Yes Safety Concerns: Feels Safe At This Time Assistive Devices: None Review of Systems Denies fever, chills, sweats. Denies SOB, difficulty breathing, chest pain, palpitations, and chest pressure. Pt endorses esophageal reflux. Denies breast pain. Denies dysuria. Denies headache or changes in vision. Physical Exam Physical Exam: General: Alert and oriented. No acute distress CV: Regular rate and rhythm. No murmurs. Respiratory: CTA bilaterally. No rhonchi, wheezes, or crackles. No increased work of breathing. Abdomen: Gravid; Soft, nontender upon palpation Pelvic: Dilated 3 cm; Effacement 75%; Station -[address] Hunter Lower extremities: No LE edema. No deep calf pain. [place]'s negative bilaterally. Results & Data ([facility]) Vital Signs (Past 12 Hours) Vital Signs Pulse BP 03/26/22 08:06 103 H 138/82 Supervising Physician Co-Signing Physician Notes Resident Physician Supervision Note: I interviewed and examined the patient. Discussed with Dr. James and agree with findings and plan as documented in the note. Any exceptions or clarifications are listed here: at 40 1/7 weeks who presents for elective induction. GBS positive, obesity. PLan pitocin induction and arom. pcn for gbs. epidural on demand. anticipate . fht category one, however, occasionally an arrythmia is heard. this is the first we have noted this. I did not appreciate this in the office yesterday on doppler and not noted in notes from her observation the day before that. Will make peds aware. fht--1 30s wtih mod variability, accels to 150s, no decels. Documented By: Mayra Hunter MD, FACOG Resident Activity Tracking Resident Involvement: Resident Care Provided Care Provided: OB Delivery
[2022-03-26 08:52] LABS: Hematocrit (blood only) 35.1 % (34.1-44.9); Hemoglobin 11.8 g/dl (12.0-16.0); Mean Corpuscular Hemoglobin 28.9 pg (25.0-34.0); Mean Corpuscular Hgb Conc 33.6 g/dL (32.0-36.0); Mean Platelet Volume 10.5 fL (9.4-12.3); Platelet Count 245 K/uL (130-400); RDW Coefficient of Variation 13.1 % (11.5-14.5); RDW Standard Deviation 40.5 fL (36.4-46.3); Red Blood Count 4.08 M/uL (3.93-5.22); White Blood Count 10.25 K/ul (4.8-10.8)
[2022-03-26] MEDS ORDERED: FAMOTIDINE 10 MG TABLET PO PRN ×2 (09:09→09:11)
[2022-03-26] MEDS: LACTATED RINGER'S 1,000 ML IV PRN ×3 (09:48→19:54)
[2022-03-26] MEDS: PENICILLIN G POTASSIUM 3 MU in DEXTROSE 5% 100 ML IV PRN ×3 (14:01→21:53)
[2022-03-26] MEDS ORDERED: ePHEDrine sulfate 50 MG/ML AMP ONE ×2 (14:38→19:33)
[2022-03-26] MEDS ORDERED: SODIUM CHLORIDE 0.9% INJ 10 ML VIAL ONE ×2 (14:39→18:31)
[2022-03-26] MEDS ORDERED: LIDOCAINE 2%/EPINEPHRINE 1:200,000 20 ML SDV ONE ×2 (14:39→19:33)
[2022-03-26] MEDS ORDERED: fentaNYL citrate 100 MCG/2 ML VIAL ONE ×2 (14:39→19:33)
[2022-03-26] MEDS ORDERED: BUPIVACAINE 0.25% 30 ML VIAL ONE ×3 (14:39→19:33)
[2022-03-26] MEDS ORDERED: fentaNYL 2MCG/ML ROPIVACAINE 1.25MG/ML 100 ML BAG EPI ONE ×2 (14:40→19:34)
[2022-03-26] MEDS ORDERED: NALOXONE HCL 0.4 MG/1 ML VIAL/CARP IV PRN (14:50)
[2022-03-26] MEDS ORDERED: NALBUPHINE HCL INJ 10 MG/ML AMP IV PRN (14:50)
[2022-03-26] MEDS ORDERED: ePHEDrine sulfate 50 MG/ML AMP IV PRN (14:50)
[2022-03-26] MEDS ORDERED: ONDANSETRON INJ 2 MG/ML 2 ML VIAL IV PRN (14:50)
[2022-03-26] MEDS ORDERED: fentaNYL 2MCG/ML ROPIVACAINE 1.25MG/ML 100 ML BAG EPI PRN ×2 (14:50→20:10)
[2022-03-26] MEDS ORDERED: diphenhydrAMINE 50 MG/ML VIAL IV PRN (14:50)
[2022-03-26] MEDS ORDERED: NALOXONE HCL 1 MG in SODIUM CHLORIDE 0.9% 1000ML 1,000 ML IV PRN (14:50)
--- NOTE | 2022-03-26 14:53 | Anesthesiology Consultation ---
Date of Service March 26, 2022 Assessment & Plan Chart Review Chart Review: Patient NOT seen in Pre Admission Testing and Acceptable Risk for Labor Epidural Consults Requested none ASA ASA3 Proposed Anesthesia Anesthesia Type: Labor Epidural and CSE Risk / Benefits Reviewed With: PT / POA / Parent / Guardian, Accepts Plan and Informed Consent Obtained History Height/Weight Height: 5 ft 3 in Weight: 107.955 kg Allergies Allergy/AdvReac Type Severity Reaction Status Date / Time house dust Allergy Mild Sneezing Verified 03/25/22 15:41 pollen extracts Allergy Mild Sneezing Verified 03/25/22 15:41 Medications Home Medications Medication Instructions Recorded Confirmed Last Taken prenat.vits,heather,ewl-jzzi-dsvjy 1 tab PO DAILY 07/14/21 03/26/22 03/22/22 08:00 albuterol sulfate 90 mcg/actuation 2 inha inhalation QID PRN 12/15/21 03/26/22 03/14/22 aerosol inhaler shortness of breath or wheezing #6.7 grams famotidine 10 mg tablet (Pepcid AC) 10 mg PO DAILY PRN Acid Reflux 03/09/22 03/26/22 03/17/22 ondansetron 4 mg disintegrating 4 mg PO Q8H PRN nausea and 03/24/22 03/26/22 03/26/22 00:00 tablet vomiting #5 tabs Active Medications Generic Name Dose Route Start Last Admin Trade Name Freq PRN Reason Stop Dose Admin Famotidine 10 mg 03/26/22 09:11 03/26/22 09:50 Famotidine 10 Mg Tablet PO 04/25/22 09:08 10 mg DAILY PRN Administration Heartburn Lactated Ringer's 1,000 mls @ 125 mls/hr 03/26/22 08:27 03/26/22 14:30 Lr IV 03/28/22 08:26 999 mls/hr .Q8H PRN Infusion L&D Protocol Protocol Penicillin G Potassium 3 mu/ 106 mls @ 100 mls/hr 03/26/22 11:27 03/26/22 14:01 Dextrose IV 04/05/22 11:26 100 mls/hr Q4H PRN Administration GBS(+) Until Delivery Oxytocin 30 units in 500 mls @ 12 mls/hr 03/26/22 08:29 03/26/22 13:00 Pitocin IV 03/28/22 08:28 0.72 units/hr .Q24H PRN 12 mls/hr Labor Induction/Augmentation Titration Protocol 0.72 UNITS/HR NPO Date Last Intake of Fluids: 03/26/22 Time Last Intake of Fluids: 14:00 Date Last Intake of Solids: 03/26/22 Time Last Intake of Solids: 07:00 Past Medical History Medical History Anxiety Asthma since childhood Depression 4 years ago since her divorce GERD (gastroesophageal reflux disease) History of chicken pox Hx of chlamydia infection Infectious mononucleosis in high school Obesity Peritonsillar abscess HX Temporomandibular joint disorder CLICKS LEFT SIDE-NO LOCKING Exercise / Class Metabolic Activity II 4-5 Yardwork/Stairs/Walk up hill Past Family History Family History Aunt Ovarian cancer Melanoma Uncle Acute leukemia Mother Arthritis Denies family history of Breast cancer Lung cancer Colorectal cancer Past Surgical History Surgical History History of cholecystectomy History of tonsillectomy History of tooth extraction WISDOM TEETH Past Anesthesia History No Hx of Anesthesia Complications and No Family Hx of Anesthesia Complications History of PONV No Hx of PONV and No Hx of Motion Sickness Social History Smoking Status: Never smoker Hx Alcohol Use: No Alcohol type: wine Hx Substance Use: No substance use type: does not use Substance Use Type Other:: INHALATION MARIJUANA 1 X A MONTH Review of Systems no chest pain or sob Physical Exam Vital Signs Last Vital Signs Temp 36.6 C 03/26/22 14:35 Pulse 103 H 03/26/22 14:48 Resp 18 03/26/22 14:35 BP 125/74 03/26/22 14:07 Pulse Ox 100 03/26/22 14:48 ENMT Mouth: + TMJ abnormality Thyromental Distance: > or= 3.5 Finger Breadths Mallampati Class: II Neck normal visual inspection Respiratory normal respiratory effort Auscultation: lungs clear to auscultation bilaterally Cardiovascular Rate/Rhythm: regular rate and regular rhythm Musculoskeletal Spine: normal cervical ROM Neurologic moves all extremities Psychiatric Orientation: alert and oriented x 3 Testing Laboratory Results 03/26/22 08:43
--- NOTE | 2022-03-26 16:12 | Labor Progress Brief Note ---
Date of Service March 26, 2022 Subjective Comfortable with epidural Assessment & Plan (1) Elective induction of labor planned: (2) GBS (group B streptococcus) UTI complicating : (3) arrhythmia affecting , antepartum: Plan continue current management. fetus overall category one. mec fluid. continue to monitor. Admission and Anticipated Discharge Date Admission Date: March 26, 2022 Physical Exam Constitutional: WD/WN, vitals as above Gastrointestinal (Abdomen): soft, gravid, nt Genitourinary: cx--4/80/-2 arom--mod green mec toco--q2-4min, pit at 12 efm--130s with mod variability, acels to 160s, no decels, can still hear arrhythmia Results & Data ([facility]) Vital Signs (Past 12 Hours) Vital Signs Temp Pulse Resp BP Pulse Ox 03/26/22 08:24 36.6 C 103 H 20 138/82 03/26/22 16:08 96 03/26/22 16:08 100 H 03/26/22 16:03 96 03/26/22 16:03 89 03/26/22 16:01 87 03/26/22 16:01 134/84 03/26/22 15:58 97 03/26/22 15:58 89 03/26/22 15:53 99 03/26/22 15:53 90 03/26/22 15:49 97 H 03/26/22 15:49 140/70 03/26/22 15:48 97 03/26/22 15:48 95 H 03/26/22 15:46 91 H 03/26/22 15:46 163/102 H 03/26/22 15:43 97 03/26/22 15:43 87 03/26/22 15:38 99 03/26/22 15:38 89 03/26/22 15:33 99 03/26/22 15:33 96 H 03/26/22 15:30 98 H 03/26/22 15:30 131/81 03/26/22 15:28 98 03/26/22 15:28 95 H 03/26/22 15:25 93 H 03/26/22 15:25 138/87 03/26/22 15:23 98 03/26/22 15:23 112 H 03/26/22 15:20 104 H 03/26/22 15:20 130/76 03/26/22 15:18 98 03/26/22 15:18 100 H 03/26/22 15:14 98 H 03/26/22 15:14 120/73 03/26/22 15:13 97 03/26/22 15:13 103 H 03/26/22 15:10 100 H 03/26/22 15:10 118/71 03/26/22 15:08 98 03/26/22 15:08 104 H 03/26/22 15:03 99 03/26/22 15:03 104 H 03/26/22 15:03 145/69 H 03/26/22 14:58 100 03/26/22 14:58 119 H 03/26/22 14:53 99 03/26/22 14:53 100 H 03/26/22 14:53 138/81 03/26/22 14:48 100 03/26/22 14:48 103 H 03/26/22 14:43 100 03/26/22 14:43 100 H 03/26/22 14:38 100 03/26/22 14:38 97 H 03/26/22 14:35 18 03/26/22 14:35 36.6 C 18 03/26/22 14:33 98 03/26/22 14:33 89 03/26/22 14:07 86 03/26/22 14:07 125/74 03/26/22 13:07 95 H 03/26/22 13:07 157/85 H 03/26/22 12:07 83 03/26/22 12:07 115/62 03/26/22 11:35 18 03/26/22 11:35 36.7 C 18 03/26/22 11:07 90 03/26/22 11:07 122/67 03/26/22 09:57 93 H 03/26/22 09:57 124/81 03/26/22 08:06 36.6 C 103 H 20 138/82 Coding Level of Care Code None Diagnoses Elective induction of labor planned GBS (group B streptococcus) UTI complicating O23.40; B95.1 arrhythmia affecting , antepartum O36.8390
[2022-03-26] MEDS: CALCIUM CARBONATE 500 MG CHEWABLE TAB PO PRN ×2 (18:09→21:23)
--- NOTE | 2022-03-26 19:19 | Labor Progress Brief Note ---
Date of Service March 26, 2022 Subjective patient not doing well with pain management. Has been redosed with little effect. Assessment & Plan (1) arrhythmia affecting , antepartum: (2) Elective induction of labor planned: Plan contninue current management. fetus reassuring. Not hearing the arrhymia as much. Continue to try to manage pain. Admission and Anticipated Discharge Date Admission Date: March 26, 2022 Physical Exam Physical Exam: cx--//-2, stretchy toco--q 2-3min, iupc placed, pit at 14 efm--120s with mod variability, accels to 160s, no decels. fse placed. Results & Data ([facility]) Vital Signs (Past 12 Hours) Vital Signs Temp Pulse Resp BP Pulse Ox 03/26/22 08:24 36.6 C 103 H 20 138/82 03/26/22 19:13 97 03/26/22 19:13 93 H 03/26/22 19:08 96 03/26/22 19:08 90 03/26/22 19:03 98 03/26/22 19:03 93 H 03/26/22 19:00 93 H 03/26/22 19:00 118/64 03/26/22 18:58 98 03/26/22 18:58 96 H 03/26/22 18:56 94 03/26/22 18:56 82 03/26/22 18:53 96 03/26/22 18:53 91 H 03/26/22 18:48 96 03/26/22 18:48 92 H 03/26/22 18:48 94 03/26/22 18:48 80 03/26/22 18:45 80 03/26/22 18:45 116/58 L 03/26/22 18:43 94 03/26/22 18:43 81 03/26/22 18:00 20 03/26/22 18:00 20 03/26/22 18:30 18 03/26/22 18:30 18 03/26/22 18:40 94 03/26/22 18:40 83 03/26/22 18:38 97 03/26/22 18:38 105 H 03/26/22 18:33 97 03/26/22 18:33 93 H 03/26/22 18:31 86 03/26/22 18:31 131/70 12/30/22 18:16 36.9 C 03/26/22 18:28 96 03/26/22 18:28 91 H 03/26/22 18:23 97 03/26/22 18:23 92 H 03/26/22 18:18 96 03/26/22 18:18 90 03/26/22 18:16 93 H 03/26/22 18:16 131/74 03/26/22 18:13 97 03/26/22 18:13 85 03/26/22 18:08 97 03/26/22 18:08 87 03/26/22 18:03 97 03/26/22 18:03 87 03/26/22 18:01 84 03/26/22 18:01 129/79 03/26/22 17:58 96 03/26/22 17:58 86 03/26/22 17:53 98 03/26/22 17:53 87 03/26/22 17:30 18 03/26/22 17:30 18 03/26/22 17:48 99 03/26/22 17:48 91 H 03/26/22 17:45 88 03/26/22 17:45 130/82 03/26/22 17:43 98 03/26/22 17:43 89 03/26/22 17:39 89 L 03/26/22 17:39 96 H 03/26/22 17:38 98 03/26/22 17:38 103 H 03/26/22 17:33 99 03/26/22 17:33 88 03/26/22 17:30 85 03/26/22 17:30 144/87 H 03/26/22 17:28 100 03/26/22 17:28 83 03/26/22 17:23 98 03/26/22 17:23 81 03/26/22 16:00 20 03/26/22 16:00 20 03/26/22 16:30 18 03/26/22 16:30 18 03/26/22 17:00 18 03/26/22 17:00 18 03/26/22 15:30 18 03/26/22 15:30 18 03/26/22 15:00 18 03/26/22 15:00 18 03/26/22 15:30 20 12/30/22 15:30 20 03/26/22 17:18 99 03/26/22 17:18 80 03/26/22 17:16 91 H 03/26/22 17:16 142/86 H 03/26/22 17:13 99 03/26/22 17:13 84 03/26/22 17:08 99 03/26/22 17:08 80 03/26/22 17:03 98 03/26/22 17:03 84 03/26/22 17:01 87 03/26/22 17:01 139/79 03/26/22 16:58 97 03/26/22 16:58 87 03/26/22 16:53 98 03/26/22 16:53 95 H 03/26/22 16:48 97 03/26/22 16:48 93 H 03/26/22 16:47 77 03/26/22 16:47 99/58 L 03/26/22 16:46 94 03/26/22 16:46 74 03/26/22 16:43 94 03/26/22 16:43 79 03/26/22 16:40 94 03/26/22 16:40 81 03/26/22 16:38 95 03/26/22 16:38 74 03/26/22 16:33 95 03/26/22 16:34 94 03/26/22 16:33 83 03/26/22 16:34 81 03/26/22 16:31 81 03/26/22 16:31 99/64 L 03/26/22 16:28 94 03/26/22 16:29 94 03/26/22 16:28 75 03/26/22 16:29 76 03/26/22 16:23 94 03/26/22 16:23 75 03/26/22 16:18 94 03/26/22 16:18 82 03/26/22 16:06 18 03/26/22 16:06 37.0 C 18 03/26/22 16:16 80 03/26/22 16:16 125/61 03/26/22 16:13 95 03/26/22 16:13 86 03/26/22 16:08 96 03/26/22 16:08 100 H 03/26/22 16:03 96 03/26/22 16:03 89 03/26/22 16:01 87 03/26/22 16:01 134/84 03/26/22 15:58 97 03/26/22 15:58 89 03/26/22 15:53 99 03/26/22 15:53 90 03/26/22 15:49 97 H 03/26/22 15:49 140/70 03/26/22 15:48 97 03/26/22 15:48 95 H 03/26/22 15:46 91 H 03/26/22 15:46 163/102 H 03/26/22 15:43 97 03/26/22 15:43 87 03/26/22 15:38 99 03/26/22 15:38 89 03/26/22 15:33 99 03/26/22 15:33 96 H 03/26/22 15:30 98 H 03/26/22 15:30 131/81 03/26/22 15:28 98 03/26/22 15:28 95 H 03/26/22 15:25 93 H 03/26/22 15:25 138/87 03/26/22 15:23 98 03/26/22 15:23 112 H 03/26/22 15:20 104 H 03/26/22 15:20 130/76 03/26/22 15:18 98 03/26/22 15:18 100 H 03/26/22 15:14 98 H 03/26/22 15:14 120/73 03/26/22 15:13 97 03/26/22 15:13 103 H 03/26/22 15:10 100 H 03/26/22 15:10 118/71 03/26/22 15:08 98 03/26/22 15:08 104 H 03/26/22 15:03 99 03/26/22 15:03 104 H 03/26/22 15:03 145/69 H 03/26/22 14:58 100 03/26/22 14:58 119 H 03/26/22 14:53 99 03/26/22 14:53 100 H 03/26/22 14:53 138/81 03/26/22 14:48 100 03/26/22 14:48 103 H 03/26/22 14:43 100 03/26/22 14:43 100 H 03/26/22 14:38 100 03/26/22 14:38 97 H 03/26/22 14:35 18 03/26/22 14:35 36.6 C 18 03/26/22 14:33 98 03/26/22 14:33 89 03/26/22 14:07 86 03/26/22 14:07 125/74 03/26/22 13:07 95 H 03/26/22 13:07 157/85 H 03/26/22 12:07 83 03/26/22 12:07 115/62 03/26/22 11:35 18 03/26/22 11:35 36.7 C 18 03/26/22 11:07 90 03/26/22 11:07 122/67 03/26/22 09:57 93 H 03/26/22 09:57 124/81 03/26/22 08:06 36.6 C 103 H 20 138/82 Coding Level of Care Code None Diagnoses arrhythmia affecting , antepartum O36.8390 Elective induction of labor planned
--- NOTE | 2022-03-26 20:46 | Labor Progress Brief Note ---
Date of Service March 26, 2022 Subjective patient finally comfortable after placement of epidural Assessment & Plan (1) arrhythmia affecting , antepartum: (2) Elective induction of labor planned: Plan Discussed situation. Needs more pitocin for adequate contractions to likely achieve cervical change. However, fetus may not tolerate this. Overall category two with variables but reassuring otherwise. Will see how baby continues to tolerate labor. Discussed if does not tolerate, will need to proceed with c/s. They express understanding of the situation. Continue to change position as needed. Admission and Anticipated Discharge Date Admission Date: March 26, 2022 Physical Exam Physical Exam: cx--/- toco--dysfunctional pattern, at times not adequate contractions, tripling/quadrupling of contractions. having early /variables with contractions now. efm--130s with mod variability, small accels , variables/early with contractions Results & Data ([facility]) Vital Signs (Past 12 Hours) Vital Signs Temp Pulse Resp BP Pulse Ox 03/26/22 20:38 98 03/26/22 20:38 92 H 03/26/22 20:33 95 03/26/22 20:34 94 03/26/22 20:33 79 03/26/22 20:34 107 H 03/26/22 20:31 80 03/26/22 20:31 111/57 L 03/26/22 20:28 95 03/26/22 20:28 75 03/26/22 20:28 94 03/26/22 20:28 77 03/26/22 20:23 96 03/26/22 20:23 78 03/26/22 20:15 20 03/26/22 20:15 36.6 C 20 03/26/22 20:20 94 03/26/22 20:20 80 03/26/22 20:18 97 03/26/22 20:18 100 H 03/26/22 20:13 96 03/26/22 20:13 88 03/26/22 20:11 86 03/26/22 20:11 124/64 03/26/22 20:08 95 03/26/22 20:08 82 03/26/22 20:08 121/62 03/26/22 20:05 86 03/26/22 20:05 114/56 L 03/26/22 20:03 95 03/26/22 20:03 81 03/26/22 20:02 101 H 03/26/22 20:02 131/65 03/26/22 19:58 97 03/26/22 19:58 91 H 03/26/22 19:53 97 03/26/22 19:53 109 H 03/26/22 19:52 92 03/26/22 19:52 116 H 03/26/22 19:48 95 03/26/22 19:48 98 H 03/26/22 19:46 94 03/26/22 19:46 103 H 03/26/22 19:46 95 H 03/26/22 19:46 128/73 03/26/22 19:43 96 03/26/22 19:43 102 H 03/26/22 19:38 97 03/26/22 19:38 103 H 03/26/22 19:33 97 03/26/22 19:33 95 H 03/26/22 19:32 90 03/26/22 19:32 126/72 03/26/22 19:28 96 03/26/22 19:28 95 H 03/26/22 19:23 95 03/26/22 19:23 102 H 03/26/22 19:18 96 03/26/22 19:18 102 H 03/26/22 19:16 95 H 03/26/22 19:16 136/81 03/26/22 19:13 97 03/26/22 19:13 93 H 03/26/22 19:08 96 03/26/22 19:08 90 03/26/22 19:03 98 03/26/22 19:03 93 H 03/26/22 19:00 93 H 03/26/22 19:00 118/64 03/26/22 18:58 98 03/26/22 18:58 96 H 03/26/22 18:56 94 03/26/22 18:56 82 03/26/22 18:53 96 03/26/22 18:53 91 H 03/26/22 18:48 96 03/26/22 18:48 92 H 03/26/22 18:48 94 03/26/22 18:48 80 03/26/22 18:45 80 03/26/22 18:45 116/58 L 03/26/22 18:43 94 03/26/22 18:43 81 03/26/22 18:00 20 03/26/22 18:00 20 03/26/22 18:30 18 03/26/22 18:30 18 03/26/22 18:40 94 03/26/22 18:40 83 03/26/22 18:38 97 03/26/22 18:38 105 H 03/26/22 18:33 97 03/26/22 18:33 93 H 03/26/22 18:31 86 03/26/22 18:31 131/70 03/26/22 18:16 36.9 C 03/26/22 18:28 96 03/26/22 18:28 91 H 03/26/22 18:23 97 03/26/22 18:23 92 H 03/26/22 18:18 96 03/26/22 18:18 90 03/26/22 18:16 93 H 03/26/22 18:16 131/74 03/26/22 18:13 97 03/26/22 18:13 85 03/26/22 18:08 97 03/26/22 18:08 87 03/26/22 18:03 97 03/26/22 18:03 87 03/26/22 18:01 84 03/26/22 18:01 129/79 03/26/22 17:58 96 03/26/22 17:58 86 03/26/22 17:53 98 03/26/22 17:53 87 03/26/22 17:30 18 03/26/22 17:30 18 03/26/22 17:48 99 03/26/22 17:48 91 H 03/26/22 17:45 88 03/26/22 17:45 130/82 03/26/22 17:43 98 03/26/22 17:43 89 03/26/22 17:39 89 L 03/26/22 17:39 96 H 03/26/22 17:38 98 03/26/22 17:38 103 H 03/26/22 17:33 99 03/26/22 17:33 88 03/26/22 17:30 85 03/26/22 17:30 144/87 H 03/26/22 17:28 100 03/26/22 17:28 83 03/26/22 17:23 98 03/26/22 17:23 81 03/26/22 16:00 20 03/26/22 16:00 20 03/26/22 16:30 18 03/26/22 16:30 18 03/26/22 17:00 18 03/26/22 17:00 18 03/26/22 15:30 18 03/26/22 15:30 18 03/26/22 15:00 18 03/26/22 15:00 18 03/26/22 15:30 20 03/26/22 15:30 20 03/26/22 17:18 99 03/26/22 17:18 80 03/26/22 17:16 91 H 03/26/22 17:16 142/86 H 03/26/22 17:13 99 03/26/22 17:13 84 03/26/22 17:08 99 03/26/22 17:08 80 03/26/22 17:03 98 03/26/22 17:03 84 03/26/22 17:01 87 03/26/22 17:01 139/79 03/26/22 16:58 97 03/26/22 16:58 87 03/26/22 16:53 98 03/26/22 16:53 95 H 03/26/22 16:48 97 03/26/22 16:48 93 H 03/26/22 16:47 77 03/26/22 16:47 99/58 L 03/26/22 16:46 94 03/26/22 16:46 74 03/26/22 16:43 94 03/26/22 16:43 79 03/26/22 16:40 94 03/26/22 16:40 81 03/26/22 16:38 95 03/26/22 16:38 74 03/26/22 16:33 95 03/26/22 16:34 94 03/26/22 16:33 83 03/26/22 16:34 81 03/26/22 16:31 81 03/26/22 16:31 99/64 L 03/26/22 16:28 94 03/26/22 16:29 94 03/26/22 16:28 75 03/26/22 16:29 76 03/26/22 16:23 94 03/26/22 16:23 75 03/26/22 16:18 94 03/26/22 16:18 82 03/26/22 16:06 18 03/26/22 16:06 37.0 C 18 03/26/22 16:16 80 03/26/22 16:16 125/61 03/26/22 16:13 95 03/26/22 16:13 86 03/26/22 16:08 96 03/26/22 16:08 100 H 03/26/22 16:03 96 03/26/22 16:03 89 03/26/22 16:01 87 03/26/22 16:01 134/84 03/26/22 15:58 97 03/26/22 15:58 89 03/26/22 15:53 99 03/26/22 15:53 90 03/26/22 15:49 97 H 03/26/22 15:49 140/70 03/26/22 15:48 97 03/26/22 15:48 95 H 03/26/22 15:46 91 H 03/26/22 15:46 163/102 H 03/26/22 15:43 97 03/26/22 15:43 87 03/26/22 15:38 99 03/26/22 15:38 89 03/26/22 15:33 99 03/26/22 15:33 96 H 03/26/22 15:30 98 H 03/26/22 15:30 131/81 03/26/22 15:28 98 03/26/22 15:28 95 H 03/26/22 15:25 93 H 03/26/22 15:25 138/87 03/26/22 15:23 98 03/26/22 15:23 112 H 03/26/22 15:20 104 H 03/26/22 15:20 130/76 03/26/22 15:18 98 03/26/22 15:18 100 H 03/26/22 15:14 98 H 03/26/22 15:14 120/73 03/26/22 15:13 97 03/26/22 15:13 103 H 03/26/22 15:10 100 H 03/26/22 15:10 118/71 03/26/22 15:08 98 03/26/22 15:08 104 H 03/26/22 15:03 99 03/26/22 15:03 104 H 03/26/22 15:03 145/69 H 03/26/22 14:58 100 03/26/22 14:58 119 H 03/26/22 14:53 99 03/26/22 14:53 100 H 03/26/22 14:53 138/81 03/26/22 14:48 100 03/26/22 14:48 103 H 03/26/22 14:43 100 03/26/22 14:43 100 H 03/26/22 14:38 100 03/26/22 14:38 97 H 03/26/22 14:35 18 03/26/22 14:35 36.6 C 18 03/26/22 14:33 98 03/26/22 14:33 89 03/26/22 14:07 86 03/26/22 14:07 125/74 03/26/22 13:07 95 H 03/26/22 13:07 157/85 H 03/26/22 12:07 83 03/26/22 12:07 115/62 03/26/22 11:35 18 03/26/22 11:35 36.7 C 18 03/26/22 11:07 90 03/26/22 11:07 122/67 03/26/22 09:57 93 H 03/26/22 09:57 124/81 Coding Level of Care Code None Diagnoses arrhythmia affecting , antepartum [id number] Elective induction of labor planned
--- NOTE | 2022-03-26 21:54 | Labor Progress Brief Note ---
Date of Service March 26, 2022 Subjective still comfortable Assessment & Plan (1) arrhythmia affecting , antepartum: (2) Elective induction of labor planned: Plan Has made significant changed. fetus overall reassuring with excellent variability, early/variable with contractions. Will recheck in one hour. Continue to monitor closely. Lots of molding. Admission and Anticipated Discharge Date Admission Date: March 26, 2022 Physical Exam Physical Exam: cx--9/100/0, lots of molding toco--q2-3min, pit at 14 efm--110s with mod variability, +scalp stim, early/variables with contractions. Results & Data ([facility]) Vital Signs (Past 12 Hours) Vital Signs Temp Pulse Resp BP Pulse Ox 03/26/22 21:48 96 03/26/22 21:48 95 H 03/26/22 21:47 91 H 03/26/22 21:47 120/67 03/26/22 21:46 94 03/26/22 21:46 85 03/26/22 21:43 97 03/26/22 21:43 89 03/26/22 21:38 96 03/26/22 21:38 90 03/26/22 21:33 95 03/26/22 21:33 91 H 03/26/22 21:32 88 03/26/22 21:32 118/64 03/26/22 21:28 98 03/26/22 21:28 91 H 03/26/22 21:25 86 03/26/22 21:25 113/60 03/26/22 21:23 98 03/26/22 21:23 94 H 03/26/22 21:21 89 L 03/26/22 21:21 110 H 03/26/22 21:18 98 03/26/22 21:18 86 03/26/22 21:18 111/69 03/26/22 21:13 96 03/26/22 21:13 88 03/26/22 21:08 97 03/26/22 21:08 90 03/26/22 21:03 98 03/26/22 21:03 88 03/26/22 21:01 90 03/26/22 21:01 129/68 03/26/22 20:58 99 03/26/22 20:58 86 03/26/22 20:53 98 03/26/22 20:54 94 03/26/22 20:53 99 H 03/26/22 20:54 98 H 03/26/22 20:48 96 03/26/22 20:48 83 03/26/22 20:47 77 03/26/22 20:47 128/62 03/26/22 20:43 95 03/26/22 20:43 82 03/26/22 20:38 98 03/26/22 20:38 92 H 03/26/22 20:33 95 03/26/22 20:34 94 03/26/22 20:33 79 03/26/22 20:34 107 H 03/26/22 20:31 80 03/26/22 20:31 111/57 L 03/26/22 20:28 95 03/26/22 20:28 75 03/26/22 20:28 94 03/26/22 20:28 77 03/26/22 20:23 96 03/26/22 20:23 78 03/26/22 20:15 20 03/26/22 20:15 36.6 C 20 03/26/22 20:20 94 03/26/22 20:20 80 03/26/22 20:18 97 03/26/22 20:18 100 H 03/26/22 20:13 96 03/26/22 20:13 88 03/26/22 20:11 86 03/26/22 20:11 124/64 03/26/22 20:08 95 03/26/22 20:08 82 03/26/22 20:08 121/62 03/26/22 20:05 86 03/26/22 20:05 114/56 L 03/26/22 20:03 95 03/26/22 20:03 81 03/26/22 20:02 101 H 03/26/22 20:02 131/65 03/26/22 19:58 97 03/26/22 19:58 91 H 03/26/22 19:53 97 03/26/22 19:53 109 H 03/26/22 19:52 92 03/26/22 19:52 116 H 03/26/22 19:48 95 03/26/22 19:48 98 H 03/26/22 19:46 94 03/26/22 19:46 103 H 03/26/22 19:46 95 H 03/26/22 19:46 128/73 03/26/22 19:43 96 03/26/22 19:43 102 H 03/26/22 19:38 97 03/26/22 19:38 103 H 03/26/22 19:33 97 03/26/22 19:33 95 H 03/26/22 19:32 90 03/26/22 19:32 126/72 03/26/22 19:28 96 03/26/22 19:28 95 H 03/26/22 19:23 95 03/26/22 19:23 102 H 03/26/22 19:18 96 03/26/22 19:18 102 H 03/26/22 19:16 95 H 03/26/22 19:16 136/81 03/26/22 19:13 97 03/26/22 19:13 93 H 03/26/22 19:08 96 03/26/22 19:08 90 03/26/22 19:03 98 03/26/22 19:03 93 H 03/26/22 19:00 93 H 03/26/22 19:00 118/64 03/26/22 18:58 98 03/26/22 18:58 96 H 03/26/22 18:56 94 03/26/22 18:56 82 03/26/22 18:53 96 03/26/22 18:53 91 H 03/26/22 18:48 96 03/26/22 18:48 92 H 03/26/22 18:48 94 03/26/22 18:48 80 03/26/22 18:45 80 03/26/22 18:45 116/58 L 03/26/22 18:43 94 03/26/22 18:43 81 03/26/22 18:00 20 03/26/22 18:00 20 03/26/22 18:30 18 03/26/22 18:30 18 03/26/22 18:40 94 03/26/22 18:40 83 03/26/22 18:38 97 03/26/22 18:38 105 H 03/26/22 18:33 97 03/26/22 18:33 93 H 03/26/22 18:31 86 03/26/22 18:31 131/70 03/26/22 18:16 36.9 C 03/26/22 18:28 96 03/26/22 18:28 91 H 03/26/22 18:23 97 03/26/22 18:23 92 H 03/26/22 18:18 96 03/26/22 18:18 90 03/26/22 18:16 93 H 03/26/22 18:16 131/74 03/26/22 18:13 97 03/26/22 18:13 85 03/26/22 18:08 97 03/26/22 18:08 87 03/26/22 18:03 97 03/26/22 18:03 87 03/26/22 18:01 84 03/26/22 18:01 129/79 03/26/22 17:58 96 03/26/22 17:58 86 03/26/22 17:53 98 03/26/22 17:53 87 03/26/22 17:30 18 03/26/22 17:30 18 03/26/22 17:48 99 03/26/22 17:48 91 H 03/26/22 17:45 88 03/26/22 17:45 130/82 03/26/22 17:43 98 03/26/22 17:43 89 03/26/22 17:39 89 L 03/26/22 17:39 96 H 03/26/22 17:38 98 03/26/22 17:38 103 H 03/26/22 17:33 99 03/26/22 17:33 88 03/26/22 17:30 85 03/26/22 17:30 144/87 H 03/26/22 17:28 100 03/26/22 17:28 83 03/26/22 17:23 98 03/26/22 17:23 81 03/26/22 16:00 20 03/26/22 16:00 20 03/26/22 16:30 18 03/26/22 16:30 18 03/26/22 17:00 18 03/26/22 17:00 18 03/26/22 15:30 18 03/26/22 15:30 18 03/26/22 15:00 18 03/26/22 15:00 18 03/26/22 15:30 20 03/26/22 15:30 20 03/26/22 17:18 99 03/26/22 17:18 80 03/26/22 17:16 91 H 03/26/22 17:16 142/86 H 03/26/22 17:13 99 03/26/22 17:13 84 03/26/22 17:08 99 03/26/22 17:08 80 03/26/22 17:03 98 03/26/22 17:03 84 03/26/22 17:01 87 03/26/22 17:01 139/79 03/26/22 16:58 97 03/26/22 16:58 87 03/26/22 16:53 98 03/26/22 16:53 95 H 03/26/22 16:48 97 03/26/22 16:48 93 H 03/26/22 16:47 77 03/26/22 16:47 99/58 L 03/26/22 16:46 94 03/26/22 16:46 74 03/26/22 16:43 94 03/26/22 16:43 79 03/26/22 16:40 94 03/26/22 16:40 81 03/26/22 16:38 95 03/26/22 16:38 74 03/26/22 16:33 95 03/26/22 16:34 94 03/26/22 16:33 83 03/26/22 16:34 81 03/26/22 16:31 81 03/26/22 16:31 99/64 L 03/26/22 16:28 94 03/26/22 16:29 94 03/26/22 16:28 75 03/26/22 16:29 76 03/26/22 16:23 94 03/26/22 16:23 75 03/26/22 16:18 94 03/26/22 16:18 82 03/26/22 16:06 18 03/26/22 16:06 37.0 C 18 03/26/22 16:16 80 03/26/22 16:16 125/61 03/26/22 16:13 95 03/26/22 16:13 86 03/26/22 16:08 96 03/26/22 16:08 100 H 03/26/22 16:03 96 03/26/22 16:03 89 03/26/22 16:01 87 03/26/22 16:01 134/84 03/26/22 15:58 97 03/26/22 15:58 89 03/26/22 15:53 99 03/26/22 15:53 90 03/26/22 15:49 97 H 03/26/22 15:49 140/70 03/26/22 15:48 97 03/26/22 15:48 95 H 03/26/22 15:46 91 H 03/26/22 15:46 163/102 H 03/26/22 15:43 97 03/26/22 15:43 87 03/26/22 15:38 99 03/26/22 15:38 89 03/26/22 15:33 99 03/26/22 15:33 96 H 03/26/22 15:30 98 H 03/26/22 15:30 131/81 03/26/22 15:28 98 03/26/22 15:28 95 H 03/26/22 15:25 93 H 03/26/22 15:25 138/87 03/26/22 15:23 98 03/26/22 15:23 112 H 03/26/22 15:20 104 H 03/26/22 15:20 130/76 03/26/22 15:18 98 03/26/22 15:18 100 H 03/26/22 15:14 98 H 03/26/22 15:14 120/73 03/26/22 15:13 97 03/26/22 15:13 103 H 03/26/22 15:10 100 H 03/26/22 15:10 118/71 03/26/22 15:08 98 03/26/22 15:08 104 H 03/26/22 15:03 99 03/26/22 15:03 104 H 03/26/22 15:03 145/69 H 03/26/22 14:58 100 03/26/22 14:58 119 H 03/26/22 14:53 99 03/26/22 14:53 100 H 03/26/22 14:53 138/81 03/26/22 14:48 100 03/26/22 14:48 103 H 03/26/22 14:43 100 03/26/22 14:43 100 H 03/26/22 14:38 100 03/26/22 14:38 97 H 03/26/22 14:35 18 03/26/22 14:35 36.6 C 18 03/26/22 14:33 98 03/26/22 14:33 89 03/26/22 14:07 86 03/26/22 14:07 125/74 03/26/22 13:07 95 H 03/26/22 13:07 157/85 H 03/26/22 12:07 83 03/26/22 12:07 115/62 03/26/22 11:35 18 03/26/22 11:35 36.7 C 18 03/26/22 11:07 90 03/26/22 11:07 122/67 03/26/22 09:57 93 H 03/26/22 09:57 124/81 Coding Level of Care Code None Diagnoses arrhythmia affecting , antepartum O36.8390 Elective induction of labor planned
[2022-03-26] MEDS ORDERED: CALCIUM CARBONATE 500 MG CHEWABLE TAB PO ONE (22:21)
[2022-03-27] MEDS ORDERED: oxyCODONE/ACETAMINOPHEN 5mg/325mg TAB PO PRN (00:40)
[2022-03-27] MEDS ORDERED: DIPHTHERIA/TETANUS/PERTUSSIS 0.5 ML SYR/VIAL IM ONE (00:40)
[2022-03-27] MEDS ORDERED: HYDROCORTISONE ACETATE 25 MG SUPP PR PRN (00:40)
[2022-03-27] MEDS ORDERED: OXYTOCIN 30 UNITS/500 ML BAG IV PRN (00:40)
[2022-03-27] MEDS ORDERED: BENZOCAINE 20% AER SPR 82.5 GM CAN EXT PRN (00:40)
[2022-03-27] MEDS ORDERED: ACETAMINOPHEN 325 MG TAB PO PRN (00:40)
[2022-03-27] MEDS ORDERED: MEASLES, MUMPS & RUBELLA VIRUS VIAL SQ ONE (00:42)
--- NOTE | 2022-03-27 00:46 | Delivery Summary ---
Vaginal Delivery Summary Date of Service March 27, 2022 Vaginal Delivery Summary and 2nd Degree LAC Pre-operative Diagnosis: at 40 1/7 weeks postdates induction Post-operative Diagnosis: same meconium Procedure: pitocin induction epidural x 2 arom with midline episotomy repair of second degree laceration EBL: 400cc Anesthesia: epidural Procedure: Patient presented for induction for postdates. She received pitocin, eventually an epidural and then arom for gree mec. She eventually required iupc and fse for monitoring. She progressed to c/c/+4 after laboring down. The patient pushed for about 20 minutes to deliver a viable female in kimberlee position over a small midline episiotomy. The anterior shoulder delivered immediately with ease. The baby was vigorous. The nose and mouth were bulb suctioned and the was placed in the maternal abdomen for drying and attention. Cord was clamped and cut. Cord blood and segment obtained. Placenta delivered spontaneous, intact with a three vessel cord. Cervix/sulci/rectum were intact. A second degree perineal laceration was repaired in the normal standard fashion. Hemostasis obtained with dilute pitocin and fundal massage. Apgars were 8/9. Mother and baby doing well at the end of the delivery. [facility] Vaginal Delivery Charge Delivery Type Details: and 2nd Degree LAC
[2022-03-27 00:56] LABS: Base Excess Cord Arterial Bld -3.9 mEq/L (-9-1.8); CO2 Cord Arterial Blood 65 mmHg (39.1-73.5); HCO3 Cord Arterial Blood 25 mmol/L (19.7-28.5); Oxygen Sat Cord Arterial Blood < 60.0 % (<60); PO2 Cord Arterial Blood 10 mmHg (4.1-31.7)
--- NOTE | 2022-03-27 01:03 | Anesthesia Procedure Note ---
Date of Service March 27, 2022 Anesthesia Post Epidural Note Vital Signs Vital Signs: Temp Pulse Resp BP Pulse Ox 37.0 C 109 H 16 157/67 H 93 03/26/22 23:05 03/27/22 01:02 03/26/22 23:05 03/27/22 01:02 03/27/22 01:01 Pain Intensity Bilateral Lower Abdomen: Pain Intensity: 2 Notes Mental Status: alert / awake / arousable and participated in evaluation Nausea / Vomiting: adequately controlled Pain: adequately controlled Airway Patency, RR, SpO2: stable & adequate BP & HR: stable & adequate Hydration State: stable & adequate Neuraxial Anesthesia: was administered and sensory block is resolving Anesthetic Complications: no major complications apparent and Pt Satisfied with anesthetic care Epidural: Removed without complications and With tip intact
[2022-03-27 01:07] LABS: Base Excess Cord Venous Blood -5.2 mEq/L (-7.7-1.9); Cord Venous Blood HCO3 20 mmol/L (18.4-26.8); Cord Venous Blood PCO2 37 mmHg (30.4-57.2); Cord Venous Blood PO2 29 mmHg (14.1-43.3); Cord Venous Blood pH 7.34 (7.20-7.44); O2 Saturation Cord Venous Bld < 60.0 % (<68)
[2022-03-27 06:16] LABS: Hematocrit (blood only) 29.7 % (34.1-44.9); Hemoglobin 10.1 g/dl (12.0-16.0)
--- NOTE | 2022-03-27 07:29 | Obstetrical Progress Note ---
Date of Service March 27, 2022 Assessment & Plan (1) Vaginal delivery: Plan doing well. routine care. Day #:: 0 Subjective Ambulation: ambulating normally Voiding: no voiding problems Diet Tolerance:: regular diet Lochia:: Small exhausted Physical Exam Constitutional WD/WN, vitals as above Cardiovascular Extremities: + edema (tr); no calf tenderness Gastrointestinal (Abdomen) obese, soft, nt, ff/nt at u Psychiatric A+Ox3, euthymic affect Results & Data ([facility]) Vital Signs (Past 12 Hours) Vital Signs Temp Pulse Pulse Resp BP BP Pulse Ox 03/27/22 03:30 36.8 C 91 H 16 118/76 97 03/27/22 02:26 37.0 C 16 03/27/22 02:31 100 H 125/71 03/27/22 02:16 96 H 120/66 03/27/22 02:01 100 H 121/65 03/27/22 01:46 108 H 139/63 03/27/22 01:16 112 H 151/85 H 03/27/22 01:02 109 H 157/67 H 03/27/22 01:01 106 H 93 03/27/22 00:59 111 H 95 03/27/22 00:54 114 H 96 03/27/22 00:49 114 H 96 03/27/22 00:46 111 H 132/64 03/27/22 00:44 113 H 96 03/27/22 00:39 105 H 97 03/27/22 00:37 106 H 129/62 03/27/22 00:34 108 H 96 03/27/22 00:31 120 H 132/66 03/27/22 00:29 113 H 95 03/27/22 00:27 117 H 136/66 03/27/22 00:23 128 H 97 03/27/22 00:18 113 H 99 03/27/22 00:13 117 H 98 03/27/22 00:08 127 H 99 03/27/22 00:03 98 03/27/22 00:03 117 H 03/27/22 00:03 102 H 167/91 H 03/27/22 00:01 89 94 03/26/22 23:58 95 03/26/22 23:58 79 03/26/22 23:54 94 03/26/22 23:54 84 03/26/22 23:53 96 03/26/22 23:53 93 H 03/26/22 23:48 96 03/26/22 23:48 103 H 03/26/22 23:47 94 03/26/22 23:47 84 03/26/22 23:47 122/60 03/26/22 23:43 94 03/26/22 23:43 79 03/26/22 23:41 94 03/26/22 23:41 81 03/26/22 23:38 94 03/26/22 23:38 79 03/26/22 23:05 16 03/26/22 23:05 37.0 C 16 03/26/22 23:35 94 03/26/22 23:35 80 03/26/22 23:33 95 03/26/22 23:33 82 03/26/22 23:32 80 03/26/22 23:32 112/56 L 03/26/22 23:29 94 03/26/22 23:29 76 03/26/22 23:28 94 03/26/22 23:28 88 03/26/22 23:23 95 03/26/22 23:23 85 03/26/22 23:23 94 03/26/22 23:23 83 03/26/22 23:18 96 03/26/22 23:18 84 03/26/22 23:18 121/68 03/26/22 23:13 98 03/26/22 23:13 101 H 03/26/22 23:10 93 03/26/22 23:10 89 03/26/22 23:08 97 03/26/22 23:08 92 H 03/26/22 23:03 98 03/26/22 23:03 93 H 03/26/22 23:02 92 H 03/26/22 23:02 137/78 03/26/22 22:58 96 03/26/22 22:58 92 H 03/26/22 22:53 97 03/26/22 22:53 81 03/26/22 22:48 96 03/26/22 22:48 87 03/26/22 22:47 96 H 03/26/22 22:47 138/79 03/26/22 22:43 95 03/26/22 22:43 74 03/26/22 22:38 95 03/26/22 22:38 79 03/26/22 22:33 96 03/26/22 22:33 84 03/26/22 22:33 80 03/26/22 22:33 116/64 03/26/22 22:28 96 03/26/22 22:28 81 03/26/22 22:23 95 03/26/22 22:23 83 03/26/22 22:18 97 03/26/22 22:18 92 H 03/26/22 22:18 89 03/26/22 22:18 135/68 03/26/22 22:13 97 03/26/22 22:13 92 H 03/26/22 22:08 96 03/26/22 22:08 89 03/26/22 21:50 20 03/26/22 21:50 36.6 C 20 03/26/22 22:03 98 03/26/22 22:03 90 03/26/22 22:01 88 03/26/22 22:01 115/61 03/26/22 21:58 96 03/26/22 21:58 90 03/26/22 21:53 98 03/26/22 21:53 85 03/26/22 21:48 96 03/26/22 21:48 95 H 03/26/22 21:47 91 H 03/26/22 21:47 120/67 03/26/22 21:46 94 03/26/22 21:46 85 03/26/22 21:43 97 03/26/22 21:43 89 03/26/22 21:38 96 03/26/22 21:38 90 03/26/22 21:33 95 03/26/22 21:33 91 H 03/26/22 21:32 88 03/26/22 21:32 118/64 03/26/22 21:28 98 03/26/22 21:28 91 H 03/26/22 21:25 86 03/26/22 21:25 113/60 03/26/22 21:23 98 03/26/22 21:23 94 H 03/26/22 21:21 89 L 03/26/22 21:21 110 H 03/26/22 21:18 98 03/26/22 21:18 86 03/26/22 21:18 111/69 03/26/22 21:13 96 03/26/22 21:13 88 03/26/22 21:08 97 03/26/22 21:08 90 03/26/22 21:03 98 03/26/22 21:03 88 03/26/22 21:01 90 03/26/22 21:01 129/68 03/26/22 20:58 99 03/26/22 20:58 86 03/26/22 20:53 98 03/26/22 20:54 94 03/26/22 20:53 99 H 03/26/22 20:54 98 H 03/26/22 20:48 96 03/26/22 20:48 83 03/26/22 20:47 77 03/26/22 20:47 128/62 03/26/22 20:43 95 03/26/22 20:43 82 03/26/22 20:38 98 03/26/22 20:38 92 H 03/26/22 20:33 95 03/26/22 20:34 94 03/26/22 20:33 79 03/26/22 20:34 107 H 03/26/22 20:31 80 03/26/22 20:31 111/57 L 03/26/22 20:28 95 03/26/22 20:28 75 03/26/22 20:28 94 03/26/22 20:28 77 03/26/22 20:23 96 03/26/22 20:23 78 03/26/22 20:15 20 03/26/22 20:15 36.6 C 20 03/26/22 20:20 94 03/26/22 20:20 80 03/26/22 20:18 97 03/26/22 20:18 100 H 03/26/22 20:13 96 03/26/22 20:13 88 03/26/22 20:11 86 03/26/22 20:11 124/64 03/26/22 20:08 95 03/26/22 20:08 82 03/26/22 20:08 121/62 03/26/22 20:05 86 03/26/22 20:05 114/56 L 03/26/22 20:03 95 03/26/22 20:03 81 03/26/22 20:02 101 H 03/26/22 20:02 131/65 03/26/22 19:58 97 03/26/22 19:58 91 H 03/26/22 19:53 97 03/26/22 19:53 109 H 03/26/22 19:52 92 03/26/22 19:52 116 H 03/26/22 19:48 95 03/26/22 19:48 98 H 03/26/22 19:46 94 03/26/22 19:46 103 H 03/26/22 19:46 95 H 03/26/22 19:46 128/73 03/26/22 19:43 96 03/26/22 19:43 102 H 03/26/22 19:38 97 03/26/22 19:38 103 H 03/26/22 19:33 97 03/26/22 19:33 95 H 03/26/22 19:32 90 03/26/22 19:32 126/72 O2 Del Method 03/27/22 03:30 Room Air 03/27/22 02:26 03/27/22 02:31 03/27/22 02:16 03/27/22 02:01 03/27/22 01:46 03/27/22 01:16 03/27/22 01:02 03/27/22 01:01 03/27/22 00:59 03/27/22 00:54 03/27/22 00:49 03/27/22 00:46 03/27/22 00:44 03/27/22 00:39 03/27/22 00:37 03/27/22 00:34 03/27/22 00:31 03/27/22 00:29 03/27/22 00:27 03/27/22 00:23 03/27/22 00:18 03/27/22 00:13 03/27/22 00:08 03/27/22 00:03 03/27/22 00:03 03/27/22 00:03 03/27/22 00:01 03/26/22 23:58 03/26/22 23:58 03/26/22 23:54 03/26/22 23:54 03/26/22 23:53 03/26/22 23:53 03/26/22 23:48 03/26/22 23:48 03/26/22 23:47 03/26/22 23:47 03/26/22 23:47 03/26/22 23:43 03/26/22 23:43 03/26/22 23:41 03/26/22 23:41 03/26/22 23:38 03/26/22 23:38 03/26/22 23:05 03/26/22 23:05 03/26/22 23:35 03/26/22 23:35 03/26/22 23:33 03/26/22 23:33 03/26/22 23:32 03/26/22 23:32 03/26/22 23:29 03/26/22 23:29 03/26/22 23:28 03/26/22 23:28 03/26/22 23:23 03/26/22 23:23 03/26/22 23:23 03/26/22 23:23 03/26/22 23:18 03/26/22 23:18 03/26/22 23:18 03/26/22 23:13 03/26/22 23:13 03/26/22 23:10 03/26/22 23:10 03/26/22 23:08 03/26/22 23:08 03/26/22 23:03 03/26/22 23:03 03/26/22 23:02 03/26/22 23:02 03/26/22 22:58 03/26/22 22:58 03/26/22 22:53 03/26/22 22:53 03/26/22 22:48 03/26/22 22:48 03/26/22 22:47 03/26/22 22:47 03/26/22 22:43 03/26/22 22:43 03/26/22 22:38 03/26/22 22:38 03/26/22 22:33 03/26/22 22:33 03/26/22 22:33 03/26/22 22:33 03/26/22 22:28 03/26/22 22:28 03/26/22 22:23 03/26/22 22:23 03/26/22 22:18 03/26/22 22:18 03/26/22 22:18 03/26/22 22:18 03/26/22 22:13 03/26/22 22:13 03/26/22 22:08 03/26/22 22:08 03/26/22 21:50 03/26/22 21:50 03/26/22 22:03 03/26/22 22:03 03/26/22 22:01 03/26/22 22:01 03/26/22 21:58 03/26/22 21:58 03/26/22 21:53 03/26/22 21:53 03/26/22 21:48 03/26/22 21:48 03/26/22 21:47 03/26/22 21:47 03/26/22 21:46 03/26/22 21:46 03/26/22 21:43 03/26/22 21:43 03/26/22 21:38 03/26/22 21:38 03/26/22 21:33 03/26/22 21:33 03/26/22 21:32 03/26/22 21:32 03/26/22 21:28 03/26/22 21:28 03/26/22 21:25 03/26/22 21:25 03/26/22 21:23 03/26/22 21:23 03/26/22 21:21 03/26/22 21:21 03/26/22 21:18 03/26/22 21:18 03/26/22 21:18 03/26/22 21:13 03/26/22 21:13 03/26/22 21:08 03/26/22 21:08 03/26/22 21:03 03/26/22 21:03 03/26/22 21:01 03/26/22 21:01 03/26/22 20:58 03/26/22 20:58 03/26/22 20:53 03/26/22 20:54 03/26/22 20:53 03/26/22 20:54 03/26/22 20:48 03/26/22 20:48 03/26/22 20:47 03/26/22 20:47 03/26/22 20:43 03/26/22 20:43 03/26/22 20:38 03/26/22 20:38 03/26/22 20:33 03/26/22 20:34 03/26/22 20:33 03/26/22 20:34 03/26/22 20:31 03/26/22 20:31 03/26/22 20:28 03/26/22 20:28 03/26/22 20:28 03/26/22 20:28 03/26/22 20:23 03/26/22 20:23 03/26/22 20:15 03/26/22 20:15 03/26/22 20:20 03/26/22 20:20 03/26/22 20:18 03/26/22 20:18 03/26/22 20:13 03/26/22 20:13 03/26/22 20:11 03/26/22 20:11 03/26/22 20:08 03/26/22 20:08 03/26/22 20:08 03/26/22 20:05 03/26/22 20:05 03/26/22 20:03 03/26/22 20:03 03/26/22 20:02 03/26/22 20:02 03/26/22 19:58 03/26/22 19:58 03/26/22 19:53 03/26/22 19:53 03/26/22 19:52 03/26/22 19:52 03/26/22 19:48 03/26/22 19:48 03/26/22 19:46 03/26/22 19:46 03/26/22 19:46 03/26/22 19:46 03/26/22 19:43 03/26/22 19:43 03/26/22 19:38 03/26/22 19:38 03/26/22 19:33 03/26/22 19:33 03/26/22 19:32 03/26/22 19:32
[2022-03-27] MEDS: DOCUSATE SODIUM 100 MG CAP PO SCH ×2 (07:46→19:31)
[2022-03-27] MEDS: PRENATAL VITAMIN 1 TAB PO SCH (07:46)
[2022-03-27] MEDS: IBUPROFEN 600 MG TAB PO PRN ×3 (07:47→19:31)
--- NOTE | 2022-03-28 07:21 | Obstetrical Progress Note ---
Date of Service March 28, 2022 Assessment & Plan (1) Vaginal delivery: PPD#1 doing well. . Desires DC home today. Reviewed DC instructions, followup 6w PP. Subjective Ambulation: ambulating normally Voiding: no voiding problems Diet Tolerance:: regular diet Lochia:: Moderate Review of Systems All systems reviewed & are unremarkable except as noted in HPI & below Physical Exam Constitutional WD/WN, vitals as above no acute distress Respiratory normal respiratory effort Cardiovascular Rate/Rhythm: regular rate and regular rhythm Gastrointestinal (Abdomen) Inspection/Auscultation: abdomen normal to inspection; abdomen not distended Percussion/Palpation: abdomen soft Genitourinary OB Exam Abdomen: + fundal height Fundus: + firm; not tender Results & Data ([facility]) Vital Signs (Past 12 Hours) Vital Signs Temp Pulse Resp BP 03/27/22 23:35 36.5 C 87 18 110/72 03/27/22 19:30 36.4 C L 84 18 119/73
[2022-03-28] MEDS: DOCUSATE SODIUM 100 MG CAP PO SCH (08:43)
[2022-03-28] MEDS: PRENATAL VITAMIN 1 TAB PO SCH (08:43)
[2022-03-28] MEDS ORDERED: bisacodyL 5 MG TABEC PO SCH (20:00)
[2022-03-29] MEDS ORDERED: bisacodyL 10 MG SUPP PR PRN
== END 2022-03-28 11:00 | disposition home or self-care (01) | DRG 807 ==
LOC: 4S1 08:02 → 4E2 03-27 03:39